=== PATIENT | female | born 1935 | race Caucasian/White ===

== ENCOUNTER 2017-11-08 13:04 | Observation (INO) ==
[2017-11-08 15:59] LABS: BASOPHILS % (AUTO) 0.3 % (0.2-1.0); EOSINOPHILS # (AUTO) 0.1 x10^3/uL (0.0-0.2); HEMATOCRIT 29.9 % (36.0-47.0); HEMOGLOBIN 10.4 g/dL (12.0-16.0); LYMPHOCYTES % (AUTO) 21.3 % (21.0-51.0); MEAN CORPUSCULAR HEMOGLOBIN 33.7 pg (27.0-34.0); MEAN CORPUSCULAR HGB CONC 34.9 g/dL (33.0-35.0); MEAN CORPUSCULAR VOLUME 96.7 fL (80.0-100.0); MEAN PLATELET VOLUME 7.5 fL (7.4-11.0); MONOCYTES # (AUTO) 0.6 x10^3/uL (0.3-0.8); MONOCYTES % (AUTO) 6.8 % (0.0-13.0); NEUTROPHILS # (AUTO) 6.5 x10^3/uL (2.2-4.8); NEUTROPHILS % (AUTO) 70.6 % (42.0-75.0); PLATELET COUNT 214 X10^3/uL (150.0-450.0); RED BLOOD COUNT 3.09 X10^6/uL (3.5-5.4); RED CELL DISTRIBUTION WIDTH 12.9 % (11.6-16.5); WHITE BLOOD COUNT 9.2 X10^3/uL (3.6-10.0)
[2017-11-08 16:14] LABS: B-TYPE NATRIURETIC PEPTIDE 131 pg/mL (0-79)
[2017-11-08 16:20] LABS: ALANINE AMINOTRANSFERASE 23 Units/L (12-78); ALBUMIN 3.2 g/dL (3.4-5.0); ALKALINE PHOSPHATASE 58 Units/L (46-116); ASPARTATE AMINO TRANSFERASE 16 Units/L (15-37); BLOOD UREA NITROGEN 34 mg/dL (7-18); CALCIUM 8.1 mg/dL (8.5-10.1); CARBON DIOXIDE 31.8 mmol/L (21-32); CHLORIDE 106 mmol/L (98-107); CKMB % 4.6 % (<4); COR CA(FOR HYPOALB) 8.7 mg/dL (8.5-10.1); COR NA(FOR HYPERGLY) 144 mmol/L (136-145); CREATINE KINASE 28 Units/L (26-192); CREATINE KINASE MB 1.3 ng/mL (0-4.0); CREATININE 1.46 mg/dL (0.55-1.02); SODIUM 143 mmol/L (136-145); TOTAL PROTEIN 6.3 g/dL (6.4-8.2); TROPONIN I < 0.02 ng/mL (0-1.5); eGFR NON BLACK RACES 36 (>60)
--- NOTE | 2017-11-08 17:21 | RAD ---
HISTORY: Shortness of breath Study: Single view of the chest. Comparison: None. Findings: Cardiomegaly and mild vascular edema. No focal consolidations, pleural effusions or pneumothorax. Oss eous structures demonstrate no acute abnormality. IMPRESSION: 1. Cardiomegaly and mild vascular edema. Reported By:
[2017-11-08 18:22] VITALS: BMI 31.9
[2017-11-08 20:26] LABS: CKMB % 4.4 % (<4); CREATINE KINASE MB 1.2 ng/mL (0-4.0); TROPONIN I 0.02 ng/mL (0-1.5)
[2017-11-08] MEDS: LASIX IVP SCH (21:55)
[2017-11-08] MEDS: NEURONTIN CAP 300 MG PO SCH (21:55)
[2017-11-08] MEDS: RESTORIL CAP 15 MG PO PRN (21:56)
[2017-11-09 00:21] LABS: CKMB % 3.7 % (<4); CREATINE KINASE MB 1.1 ng/mL (0-4.0); TROPONIN I 0.02 ng/mL (0-1.5)
[2017-11-09 06:10] LABS: BASOPHILS % (AUTO) 0.4 % (0.2-1.0); EOSINOPHILS # (AUTO) 0.1 x10^3/uL (0.0-0.2); EOSINOPHILS % (AUTO) 1.2 % (0.9-2.9); HEMATOCRIT 30.7 % (36.0-47.0); HEMOGLOBIN 10.7 g/dL (12.0-16.0); LYMPHOCYTES # (AUTO) 1.5 X10^3/uL (1.3-2.9); LYMPHOCYTES % (AUTO) 17.1 % (21.0-51.0); MEAN CORPUSCULAR HEMOGLOBIN 33.9 pg (27.0-34.0); MEAN CORPUSCULAR HGB CONC 34.8 g/dL (33.0-35.0); MEAN CORPUSCULAR VOLUME 97.6 fL (80.0-100.0); MEAN PLATELET VOLUME 7.7 fL (7.4-11.0); MONOCYTES # (AUTO) 0.5 x10^3/uL (0.3-0.8); MONOCYTES % (AUTO) 5.8 % (0.0-13.0); NEUTROPHILS # (AUTO) 6.8 x10^3/uL (2.2-4.8); NEUTROPHILS % (AUTO) 75.5 % (42.0-75.0); PLATELET COUNT 223 X10^3/uL (150.0-450.0); RED BLOOD COUNT 3.14 X10^6/uL (3.5-5.4); RED CELL DISTRIBUTION WIDTH 13.2 % (11.6-16.5)
[2017-11-09 06:30] LABS: CALCIUM 8.1 mg/dL (8.5-10.1); CARBON DIOXIDE 29.8 mmol/L (21-32); COR CA(FOR HYPOALB) 8.9 mg/dL (8.5-10.1); CREATININE 1.46 mg/dL (0.55-1.02); TOTAL PROTEIN 6.2 g/dL (6.4-8.2)
--- NOTE | 2017-11-09 07:37 | RAD ---
HISTORY: Shortness of breath Study: Chest AP portable Comparison: 11/08/2017 Findings: The heart is enlarged. No congestive heart failure is noted. No acute alveolar infiltrates or pleural effusions are identified. The bony thorax is unremarkable. IMPRESSION: Moderate cardiomegaly without congestive heart failure No infiltrates Reported By:
[2017-11-09] MEDS: LASIX IVP SCH ×2 (09:00→22:41)
[2017-11-09] MEDS: NEURONTIN CAP 300 MG PO SCH ×2 (09:00→21:42)
[2017-11-09] MEDS ORDERED: MACROBID CAP 100 MG EXT REL PO SCH (10:00)
[2017-11-09] MEDS ORDERED: LASIX IVP SCH (10:00)
[2017-11-09 12:17] LABS: BILIRUBIN,URINE NEGATIVE (NEGATIVE); BLOOD/HEMOGLOBIN,URINE NEGATIVE (NEGATIVE); GLUCOSE, URINE NEGATIVE (NEGATIVE); KETONES,URINE NEGATIVE (NEGATIVE); LEUKOCYTE ESTERASE ,URINE 1+ (NEGATIVE); NITRITES,URINE NEGATIVE (NEGATIVE); PROTEIN,URINE NEGATIVE (NEGATIVE); UROBILINOGEN,URINE NORMAL (NORMAL)
[2017-11-09 12:25] LABS: APPEARANCE,URINE CLEAR (CLEAR); COLOR,URINE PALE YELLOW (YELLOW)
[2017-11-09 12:26] LABS: BACTERIA,URINE NEGATIVE /HPF (NEGATIVE); RBC,URINE 0-2 /HPF (NONE SEEN); SQUAMOUS EPITHELIAL CELL,UR RARE /HPF (NEGATIVE)
--- NOTE | 2017-11-09 15:45 | VAS ---
HISTORY: Leg pain and swelling Study: color-flow duplex Doppler studies of the lower extremities. Comparison: None TECHNIQUE: Multiple sheets scale and color flow Doppler images of the deep venous system were obtained of the right and left lower extremity. FINDINGS: The deep venous system of the right and left lower extremities were evaluated from the level of the c ommon femoral vein through the popliteal vein. Normal color flow and augmentation can be observed. In addition, normal compression is seen throughout the deep venous system. IMPRESSION: No DVT identified in the lower extremities. Reported By:
--- NOTE | 2017-11-09 20:36 | DR.UPDATE ---
H&P Update History and Physical Update: WAS SEEN IN THE OFFICE TODAY. A H&P WAS COMPLETED PRIOR TO ADMISSION. PATIENT HAS BEEN SEEN AND EXAMINED WITH NO CHANGES NOTED TO H&P. Changes noted: NO Yes with the following:
--- NOTE | 2017-11-09 20:44 | PCM.PROG ---
Progress Note - Progress Note for Day of Date of Exam: 11/09/17 - Subjective Subjective: WAS ADMITTED FOR NEW ONSET CHF AND A RECENT UTI. TODAY, SHE IS ALERT AND ORIENTED, LYING IN BED ON MORNING ROUNDS. SHE CONTINUES WITH COMPLAINTS OF SHORTNESS OF BREATH AND LOWER EXTREMITY EDEMA. ON EXAMINATION, HEART IS REGULAR IN RATE AND RHYTHM. BILATERAL LUNGS ARE NOTED WITH DIMINISHED LUNG SOUNDS THROUGHOUT. ABDOMEN IS ROUND, SOFT, AND NON-TENDER WITH NORMAL BOWEL SOUNDS NOTED IN ALL QUADRANTS. BILATERAL LOWER EXTREMITIES ARE NOTED WITH 3+ PITTING EDEMA. SHE COMPLAINTS OF PAIN TO BOTH EXTREMITIES. HER VITALS TODAY ARE 98.0-88-20-100%-172/79. LABS WERE OBTAINED. ABNORMAL LAB VALUES INCLUDE THE FOLLOWING: RBC 3.14, HGB 10.7, HCT 30.7, BUN 34, CREATININE 1.46, GLUCOSE 151, CALCIUM 8.1, TOTAL PROTEIN 6.2, ALBUMIN 3.0. CARDIAC ENZYMES AND EKGS WITHIN NORMAL LIMITS. WE OBTAINED A BILATERAL LOWER EXTREMITY VENOUS DOPPLER TODAY. IT REVEALED: The deep venous system of the right and left lower extremities were evaluated from the level of the common femoral vein through the popliteal vein. Normal color flow and augmentation can be observed. In addition, normal compression is seen throughout the deep venous system. WE WILL OBTAIN AN ECHOCARDIOGRAM TODAY. WE WILL CONTINUE TO ADMINISTER LASIX AND RESTRICT IV FLUIDS. OTHERWISE, WE PLAN TO FOLLOW UP WITH AM LABS AND CONTINUE TO MONITOR PATIENT. - Past Medical Family Social History Past Med/Fam/Surg Hx: No changes since H&P Allergies: Allergies No Known Drug Allergies Allergy (Verified 11/08/17 15:48) - Vital Signs and I&O's Vital Signs: Temperature 98.5 F Pulse Rate [Right Radial] 88 Respiratory Rate 20 Blood Pressure [Right Arm] 167/72 O2 Sat by Pulse Oximetry 98 Intake and Output: Intake & Output 11/07/17 11/08/17 11/09/17 11/10/17 11:59 11:59 11:59 11:59 Intake Total 445 / 445 480 / 480 Balance 445 / 445 480 / 480 - Physical Exam Oriented: Normal Eyes: Normal Ear: Normal Nose: Normal Throat: Normal Respiratory: Generalized, Diminished Cardiovascular: Edema (BILATERAL LOWER EXTREMITY 3+ PITTING EDEMAE ) : Normal Auscultation: Bowel Sounds: Normal Palpation: Normal Tenderness: Normal Skin: Normal Musculoskeletal: Normal Psychiatric: Normal Mood Description: Calm Affect: Normal Speech Pattern: Clear, Appropriate - Laboratory and Diagnostics Result Diagrams: 11/09/17 05:30 11/09/17 05:30 Labs: Laboratory WBC 9.0 X10^3/uL (3.6-10.0) 11/09/17 05:30 RBC 3.14 X10^6/uL (3.5-5.4) L 11/09/17 05:30 Hgb 10.7 g/dL (12.0-16.0) L 11/09/17 05:30 Hct 30.7 % (36.0-47.0) L 11/09/17 05:30 MCV 97.6 fL (80.0-100.0) 11/09/17 05:30 MCH 33.9 pg (27.0-34.0) 11/09/17 05:30 MCHC 34.8 g/dL (33.0-35.0) 11/09/17 05:30 RDW 13.2 % (11.6-16.5) 11/09/17 05:30 Plt Count 223 X10^3/uL (150.0-450.0) 11/09/17 05:30 MPV 7.7 fL (7.4-11.0) 11/09/17 05:30 Neut % (Auto) 75.5 % (42.0-75.0) H 11/09/17 05:30 Lymph % (Auto) 17.1 % (21.0-51.0) L 11/09/17 05:30 [place] % (Auto) 5.8 % (0.0-13.0) 11/09/17 05:30 Eos % (Auto) 1.2 % (0.9-2.9) 11/09/17 05:30 Baso % (Auto) 0.4 % (0.2-1.0) 11/09/17 05:30 Neut # (Auto) 6.8 x10^3/uL (2.2-4.8) H 11/09/17 05:30 Lymph # (Auto) 1.5 X10^3/uL (1.3-2.9) 11/09/17 05:30 [place] # (Auto) 0.5 x10^3/uL (0.3-0.8) 11/09/17 05:30 Eos # (Auto) 0.1 x10^3/uL (0.0-0.2) 11/09/17 05:30 Baso # (Auto) 0.0 X10^3/uL (0.0-0.1) 11/09/17 05:30 Absolute Nucleated RBC 0.0 /100WBC 11/09/17 05:30 Sodium 143 mmol/L (136-145) 11/09/17 05:30 Corrected Sodium 144 mmol/L (136-145) 11/09/17 05:30 Potassium 4.3 mmol/L (3.5-5.1) 11/09/17 05:30 Chloride 107 mmol/L (98-107) 11/09/17 05:30 Carbon Dioxide 29.8 mmol/L (21-32) 11/09/17 05:30 BUN 34 mg/dL (7-18) H 11/09/17 05:30 Creatinine 1.46 mg/dL (0.55-1.02) H 11/09/17 05:30 Est GFR (MDRD) Af Amer 44 (>60) L 11/09/17 05:30 Est GFR (MDRD) Non-Af 36 (>60) L 11/09/17 05:30 Glucose 151 mg/dL (65-99) H 11/09/17 05:30 Calcium 8.1 mg/dL (8.5-10.1) L 11/09/17 05:30 Corrected Calcium 8.9 mg/dL (8.5-10.1) 11/09/17 05:30 Total Bilirubin 0.20 mg/dL (0.2-1.0) 11/09/17 05:30 AST 15 Units/L (15-37) 11/09/17 05:30 ALT 21 Units/L (12-78) 11/09/17 05:30 Alkaline Phosphatase 58 Units/L (46-116) 11/09/17 05:30 Creatine Kinase 30 Units/L (26-192) 11/08/17 23:37 CK-MB (CK-2) 1.1 ng/mL (0-4.0) 11/08/17 23:37 CK/CKMB % Calc 3.7 % (<4) 11/08/17 23:37 Troponin I 0.02 ng/mL (0-1.5) 11/08/17 23:37 B-Natriuretic Peptide 131 pg/mL (0-79) H 11/08/17 15:50 Total Protein 6.2 g/dL (6.4-8.2) L 11/09/17 05:30 Albumin 3.0 g/dL (3.4-5.0) L 11/09/17 05:30 Globulin 3.2 g/dL (2.5-4.5) 11/09/17 05:30 Albumin/Globulin Ratio 0.9 Ratio (1.1-2.1) L 11/09/17 05:30 Specimen Type Clean catch urine 11/09/17 11:42 Urine Color Pale yellow (YELLOW) 11/09/17 11:42 Urine Appearance Clear (CLEAR) 11/09/17 11:42 Urine pH 5.0 (5.0 - 8.0) 11/09/17 11:42 Ur Specific [place] 1.010 (1.000-1.030) 11/09/17 11:42 Urine Protein Negative (NEGATIVE) 11/09/17 11:42 Urine Glucose (UA) Negative (NEGATIVE) 11/09/17 11:42 Urine Ketones Negative (NEGATIVE) 11/09/17 11:42 Urine Occult Blood Negative (NEGATIVE) 11/09/17 11:42 Urine Nitrite Negative (NEGATIVE) 11/09/17 11:42 Urine Bilirubin Negative (NEGATIVE) 11/09/17 11:42 Urine Urobilinogen Normal (NORMAL) 11/09/17 11:42 Ur Leukocyte Esterase 1+ (NEGATIVE) 11/09/17 11:42 Urine RBC 0-2 /HPF (NONE SEEN) 11/09/17 11:42 Urine WBC 0-2 /HPF (NONE SEEN) 11/09/17 11:42 Ur Squamous Epith Cells Rare /HPF (NEGATIVE) 11/09/17 11:42 Urine Bacteria Negative /HPF (NEGATIVE) 11/09/17 11:42 Ur Culture Indicated? No/not indicated 11/09/17 11:42 - Plan (1) New onset of congestive heart failure Status: Acute Plan: LASIX 20MG IV Q12H, SUPPLEMENTAL OXYGEN, OBTAIN ECHO, MONITOR CHEST XRAY
[2017-11-09] MEDS: RESTORIL CAP 15 MG PO PRN (21:00)
[2017-11-10 06:27] LABS: BASOPHILS % (AUTO) 0.6 % (0.2-1.0); EOSINOPHILS # (AUTO) 0.2 x10^3/uL (0.0-0.2); EOSINOPHILS % (AUTO) 2.4 % (0.9-2.9); HEMATOCRIT 29.9 % (36.0-47.0); HEMOGLOBIN 10.4 g/dL (12.0-16.0); LYMPHOCYTES # (AUTO) 1.9 X10^3/uL (1.3-2.9); LYMPHOCYTES % (AUTO) 22.9 % (21.0-51.0); MEAN CORPUSCULAR HGB CONC 34.9 g/dL (33.0-35.0); MEAN CORPUSCULAR VOLUME 97.4 fL (80.0-100.0); MEAN PLATELET VOLUME 7.5 fL (7.4-11.0); MONOCYTES # (AUTO) 0.5 x10^3/uL (0.3-0.8); MONOCYTES % (AUTO) 5.5 % (0.0-13.0); NEUTROPHILS # (AUTO) 5.6 x10^3/uL (2.2-4.8); NEUTROPHILS % (AUTO) 68.6 % (42.0-75.0); PLATELET COUNT 214 X10^3/uL (150.0-450.0); RED BLOOD COUNT 3.07 X10^6/uL (3.5-5.4); RED CELL DISTRIBUTION WIDTH 13.1 % (11.6-16.5); WHITE BLOOD COUNT 8.2 X10^3/uL (3.6-10.0)
[2017-11-10 06:32] LABS: ALBUMIN 2.9 g/dL (3.4-5.0); CALCIUM 8.2 mg/dL (8.5-10.1); CARBON DIOXIDE 33.3 mmol/L (21-32); COR CA(FOR HYPOALB) 9.1 mg/dL (8.5-10.1); CREATININE 1.24 mg/dL (0.55-1.02)
--- NOTE | 2017-11-10 06:36 | RAD ---
HISTORY: Shortness of breath, swelling Study: Single-view chest Comparison: 11/09/2017. Findings: Trachea is midline. There is cardiomegaly with aortic uncoiling. The lungs and pleural spaces are mae ar. Osseous structures are intact. IMPRESSION: Hypertensive configuration without acute cardiopulmonary disease. Reported By:
[2017-11-10] MEDS: NEURONTIN CAP 300 MG PO SCH (08:59)
[2017-11-10] MEDS: LASIX IVP SCH (09:00)
[2017-11-10 12:16] VITALS: BP 161/70
--- NOTE | 2017-12-13 22:38 | DR.CARTERD ---
- Discharge Summary for: Discharge Summary for Date of:: 11/10/17 - Admission Date Date of Admission: 11/08/17 - Admission Diagnoses Admission Diagnosis: (1) New onset of congestive heart failure (2) Shortness of breath (3) Bilateral lower extremity edema - Discharge Date Discharge Date: 11/10/17 - Discharge Diagnoses Discharge Diagnosis: (1) New onset of congestive heart failure (2) Shortness of breath (3) Bilateral lower extremity edema - Hospital Course Hospital Course: DAY ONE, MS. YOUNG WAS A DIRECT ADMIT FROM OUR OFFICE FOR NEW ONSET CHF. PATIENT WAS NOTED WITH BILATERAL LOWER EXTREMITY PITTING EDEMA AND SHORTNESS OF BREATH. WE ADMITTED FOR FURTHER TREATMENT AND EVALUATION. DAY TWO, SHE WAS ALERT AND ORIENTED, LYING IN BED ON MORNING ROUNDS. SHE CONTINUED WITH COMPLAINTS OF SHORTNESS OF BREATH AND LOWER EXTREMITY EDEMA. ON EXAMINATION, HEART WAS REGULAR IN RATE AND RHYTHM. BILATERAL LUNGS WERE NOTED WITH DIMINISHED LUNG SOUNDS THROUGHOUT. ABDOMEN WAS ROUND, SOFT, AND NON-TENDER WITH NORMAL BOWEL SOUNDS NOTED IN ALL QUADRANTS. BILATERAL LOWER EXTREMITIES WERE NOTED WITH 3+ PITTING EDEMA. SHE COMPLAINED OF PAIN TO BOTH EXTREMITIES. HER VITALS WERE 98.0-88-20-100%-172/79. LABS WERE OBTAINED. ABNORMAL LAB VALUES INCLUDED THE FOLLOWING: RBC 3.14, HGB 10.7, HCT 30.7, BUN 34, CREATININE 1.46, GLUCOSE 151, CALCIUM 8.1, TOTAL PROTEIN 6.2, ALBUMIN 3.0. CARDIAC ENZYMES AND EKGS WITHIN NORMAL LIMITS. WE OBTAINED A BILATERAL LOWER EXTREMITY VENOUS DOPPLER AND IT REVEALED: The deep venous system of the right and left lower extremities were evaluated from the level of the common femoral vein through the popliteal vein. Normal color flow and augmentation can be observed. In addition, normal compression is seen throughout the deep venous system. WE CONTINUED TO ADMINISTER LASIX AND RESTRICT IV AND PO FLUIDS. ON DAY THREE, WE OBTAINED AN ECHO, WHICH REPORTED AN EJECTION FRACTION OF 55%. PATIENT HAD URINE OUTPUT OF 2000MLS ON DAY TWO. ON DAY THREE, LOWER EXTREMITY EDEMA WAS RESOLVED. PATIENT DENIED PAIN TO LOWER EXTREMITIES. NO DISTRESS WAS NOTED. SHE DENIED SHORTNESS OF BREATH. VITAL SIGNS STABLE. LABS WNL. WE PLANNED FOR DISCHARGE. INSTRUCTIONS FOR MEDICATIONS AND FOLLOW UP WERE DISCUSSED WITH PATIENT AND FAMILY, BOTH VOICED UNDERSTANDING. PATIENT DISCHARGED HOME IN STABLE CONDITION WITH FAMILY. - Discharge Medications Discharge Medications: Home Medication List gabapentin 300 mg PO BID 11/08/17 [History] nitrofurantoin monohyd/m-cryst [Macrobid] 100 mg PO BID 11/08/17 [History] furosemide [Lasix] 20 mg PO BID #60 tab 11/10/17 [Rx] Prescriptions: furosemide [Lasix] Ashish Son ranitidine HCl [Zantac Maximum Strength] 150 mg PO BID PRN 12/12/17 - Discharge Disposition Discharge Disposition: PATIENT IS TO FOLLOW UP WITH ANDRE LIANG IN ONE WEEK.
== END 2017-11-10 16:30 | disposition home health service (06) ==
LOC: MED/SURG
PROVIDERS: ADMIT Internal Medicine; ATTEND Internal Medicine
DX: Z87.440 Personal history of urinary (tract) infections; I50.9 Heart failure, unspecified; R74.8 Abnormal levels of other serum enzymes; R60.0 Localized edema; R42 Dizziness and giddiness; R94.31 Abnormal electrocardiogram [ECG] [EKG]; R94.4 Abnormal results of kidney function studies; R26.89 Other abnormalities of gait and mobility; I51.7 Cardiomegaly
CPT/HCPCS: 36415; 71010; 71045; 80053; 81001; 82550; 82553; 83880; 84484; 85025; 93005; 93306; 93970; 94760; 97163; 97166; 97535; A4216; A4222; G0378; J1940

== ENCOUNTER 2017-12-12 21:19 | Inpatient (IN) ==
--- NOTE | 2017-12-12 22:05 | DR.GENAD ---
HPI Time Seen Time Seen by Provider: 12/12/17 22:01 PCP Primary Care Physician: allison HPI Comment HPI Comment: PATIENT FOR UTI 4 DAYS AGO. HERE VIA EMS. DENIES TRAUMA OR FEVER. Complaint/Symptoms Chief Complaint Doctors Comments: AMS. Chief Complaint:: pt to ed via [facility] with c/o AMS per family pt oriented to person,place pt dx with uti on 12/08/17 Nurses notes reviewed Nurses Notes Review: Yes Source History Provided: Patient Mode of Arrival Mode of Arrival: EMS Timing Onset of Chief Complaint: 12/08/17 Duration Duration: Since Onset Duration: Hours Severity Severity: None PMH PMH Past Medical History: Yes Past Medical History: Arthritis and GERD Past Surgical History: Yes Surgical History: Hysterectomy and Ortho Surgery Family History History of Family Medical Conditions: Yes Family Medical History: Cancer Social History Does patient currently use any type of tobacco product: No Have you used tobacco products in the last 12 months: No Type of Tobacco Use: None Does any household member use tobacco: No Alcohol Use: None Do you use any recreational Drugs:: No Lives With: Family Lives Where: Home infectious screening In the last 2 months have you had wt loss of >10#?: NO Have you had fever, night sweats or hemotysis?: No Have you traveled outside the country in the last 6 months?: No Isolation: Standard ROS Review of Systems Constitutional: Fatigue Eyes: No Symptoms Reported ENTM: No Symptoms Reported Respiratoy: Short of Breath (ON EXERSION) Cardiovascular: No Symptoms Reported Gastrointestinal/Abdominal: No Symptoms Reported Genitourinary: No Symptoms Reported Neurological: Other (AMS.) Musculoskeletal: No Symptoms Reported Integumentary: No Symptoms Reported Hematologic/Lymphatic: No Symptoms Reported Endocrine: No Symptoms Reported Psychiatric: No Symptoms Reported All Other Systems: Reviewed and Negative Unable to Obtain Due To: Altered mental status PE Vital Signs Vitals: Temperature 98.4 F Pulse Rate [Left] 86 Pulse Rate 75 Respiratory Rate 20 Blood Pressure [Left Arm] 153/64 Blood Pressure [Right Arm] 101/53 Blood Pressure 135/63 O2 Sat by Pulse Oximetry 98 General Limitations: Altered Mental Status General Appearance: Alert and In No Apparent Distress Head Head Exam: Normal Inspection Eyes Eye exam: Normal Appearance ENT ENT Exam: Normal Exam TM/Canal Exam: Bilateral: Normal Nose Exam: Normal Nose Exam Mouth Exam: Normal Inspection Throat Exam: Normal Inspection Neck Neck Exam: Normal Inspection Chest Chest Inspection: Symmetric Chest Wall Rise Respiratory Respiratory Exam: Normal Lung Sounds Bilat Respiratory Exam: Bilateral: Clear to Auscultation Cardiovascular Cardiovascular Exam: Regular Rate Abdominal Exam Abdominal Exam: Normal Bowel Sounds and Soft; negative Tenderness Extremities Extremities Exam: Normal Capillary Refill; negative Calf Tenderness Back Back Exam: Normal Inspection Neurologic Neurological Exam: Alert and Oriented X3 (ORIENTED TO PERSON AND PLACE.); negative Motor Sensory Deficit Psychiatric Psychiatric Exam: Normal Affect Skin Skin Exam: Intact MDM Differential Diagnosis Differential Diagnosis: AMS, CVA, UTI, TIA COURSE Treatment Treatment: SEE ORDERS. Consultation Consultation Comments: DR. MANNING WILL ADMIT PATIENT. Education/Counseling Education/Counseling: Patient Educated On: Diagnosis ROR Labs Reviewed Laboratory Results Reviewed?: Yes Result Diagrams: 12/21/17 04:20 12/21/17 04:20 Laboratory: 12/19/17 10:15 Groin Gram Stain - Final 12/19/17 10:15 Groin Wound Culture - Final Escherichia Coli 12/12/17 00:15 Blood Blood Culture - Final 12/12/17 00:22 Blood Blood Culture - Final 12/13/17 11:20 Urine,Catheterized Urine Culture - Final WBC 13.4 X10^3/uL (3.6-10.0) H 12/21/17 04:20 RBC 2.43 X10^6/uL (3.5-5.4) L 12/21/17 04:20 Hgb 8.2 g/dL (12.0-16.0) L 12/21/17 04:20 Hct 23.5 % (36.0-47.0) L 12/21/17 04:20 MCV 96.6 fL (80.0-100.0) 12/21/17 04:20 MCH 33.7 pg (27.0-34.0) 12/21/17 04:20 MCHC 34.9 g/dL (33.0-35.0) 12/21/17 04:20 RDW 12.5 % (11.6-16.5) 12/21/17 04:20 Plt Count 303 X10^3/uL (150.0-450.0) 12/21/17 04:20 Plt Count Comment Adequate (ADEQUATE) 12/18/17 04:10 MPV 7.8 fL (7.4-11.0) 12/21/17 04:20 Neut % (Auto) 76.7 % (42.0-75.0) H 12/21/17 04:20 Lymph % (Auto) 16.6 % (21.0-51.0) L 12/21/17 04:20 [place] % (Auto) 3.8 % (0.0-13.0) 12/21/17 04:20 Eos % (Auto) 2.3 % (0.9-2.9) 12/21/17 04:20 Baso % (Auto) 0.6 % (0.2-1.0) 12/21/17 04:20 Neut # (Auto) 10.3 x10^3/uL (2.2-4.8) H 12/21/17 04:20 Lymph # (Auto) 2.2 X10^3/uL (1.3-2.9) 12/21/17 04:20 [place] # (Auto) 0.5 x10^3/uL (0.3-0.8) 12/21/17 04:20 Eos # (Auto) 0.3 x10^3/uL (0.0-0.2) H 12/21/17 04:20 Baso # (Auto) 0.1 X10^3/uL (0.0-0.1) 12/21/17 04:20 Absolute Nucleated RBC 0.0 /100WBC 12/21/17 04:20 Total Counted 100 12/18/17 04:10 Neutrophils % (Manual) 78 % (39-76) H 12/18/17 04:10 Band Neutrophils % 4 % (0-10) 12/18/17 04:10 Lymphocytes % (Manual) 12 % (13-43) L 12/18/17 04:10 Monocytes % (Manual) 4 % (4-9) 12/18/17 04:10 Eosinophils % (Manual) 2 % (0-6) 12/18/17 04:10 Plt Morphology Comment Normal (NORMAL) 12/18/17 04:10 RBC Morphology Normal (NORMAL) 12/18/17 04:10 Sodium 143 mmol/L (136-145) 12/21/17 04:20 Corrected Sodium 143 mmol/L (136-145) 12/21/17 04:20 Potassium 3.8 mmol/L (3.5-5.1) 12/21/17 04:20 Chloride 107 mmol/L (98-107) 12/21/17 04:20 Carbon Dioxide 31.6 mmol/L (21-32) 12/21/17 04:20 BUN 21 mg/dL (7-18) H 12/21/17 04:20 Creatinine 1.04 mg/dL (0.55-1.02) H 12/21/17 04:20 Est GFR (MDRD) Af Amer > 60 (>60) 12/21/17 04:20 Est GFR (MDRD) Non-Af 54 (>60) L 12/21/17 04:20 Glucose 111 mg/dL (65-99) H 12/21/17 04:20 Lactic Acid 1.5 mmol/L (0.4-2.0) 12/12/17 00:15 Calcium 7.8 mg/dL (8.5-10.1) L 12/21/17 04:20 Corrected Calcium 9.1 mg/dL (8.5-10.1) 12/21/17 04:20 Magnesium 1.6 mg/dL (1.7-2.9) L 12/13/17 05:09 Total Bilirubin 0.30 mg/dL (0.2-1.0) 12/21/17 04:20 AST 12 Units/L (15-37) L 12/21/17 04:20 ALT 12 Units/L (12-78) 12/21/17 04:20 Alkaline Phosphatase 49 Units/L (46-116) 12/21/17 04:20 Creatine Kinase 56 Units/L (26-192) 12/14/17 05:53 CK-MB (CK-2) < 1.0 ng/mL (0-4.0) 12/14/17 05:53 CK/CKMB % Calc 1.8 % (<4) 12/14/17 05:53 Troponin I 0.04 ng/mL (0-1.5) 12/14/17 05:53 Total Protein 5.4 g/dL (6.4-8.2) L 12/21/17 04:20 Albumin 2.4 g/dL (3.4-5.0) L 12/21/17 04:20 Globulin 3.0 g/dL (2.5-4.5) 12/21/17 04:20 Albumin/Globulin Ratio 0.8 Ratio (1.1-2.1) L 12/21/17 04:20 Specimen Type Catherized urine 12/13/17 11:20 Urine Color Brown (YELLOW) 12/13/17 11:20 Urine Appearance Hazy (CLEAR) 12/13/17 11:20 Urine pH 5.0 (5.0 - 8.0) 12/13/17 11:20 Ur Specific [place] 1.025 (1.000-1.030) 12/13/17 11:20 Urine Protein 2+ (NEGATIVE) 12/13/17 11:20 Urine Glucose (UA) Negative (NEGATIVE) 12/13/17 11:20 Urine Ketones Negative (NEGATIVE) 12/13/17 11:20 Urine Occult Blood 3+ (NEGATIVE) 12/13/17 11:20 Urine Nitrite Positive (NEGATIVE) 12/13/17 11:20 Urine Bilirubin 2+ (NEGATIVE) 12/13/17 11:20 Urine Urobilinogen 2+ (NORMAL) 12/13/17 11:20 Ur Leukocyte Esterase 2+ (NEGATIVE) 12/13/17 11:20 Urine RBC 5-10 /HPF (NONE SEEN) 12/13/17 11:20 Urine WBC 3-5 /HPF (NONE SEEN) 12/13/17 11:20 Ur Squamous Epith Cells Negative /HPF (NEGATIVE) 12/13/17 11:20 Amorphous Sediment 2+ /HPF (NEGATIVE) 12/13/17 11:20 Urine Bacteria 3+ /HPF (NEGATIVE) 12/13/17 11:20 Ur Culture Indicated? Yes/culture set up 12/13/17 11:20 Stool Description 20g,unformed,brown 12/18/17 14:00 Stl Occult Blood (IFOB) Negative (NEGATIVE) 12/18/17 14:00 Instructions Instructions: Percutaneous Abscess Drain Shortness of Breath, Adult Urinary Tract Infection, Adult Heart Failure, Igkh-dl-Atty Percutaneous Abscess Drain, Care After
[2017-12-12 22:40] LABS: BASOPHILS # (AUTO) 0.2 X10^3/uL (0.0-0.1); BASOPHILS % (AUTO) 0.7 % (0.2-1.0); EOSINOPHILS # (AUTO) 0.1 x10^3/uL (0.0-0.2); EOSINOPHILS % (AUTO) 0.4 % (0.9-2.9); HEMOGLOBIN 10.7 g/dL (12.0-16.0); LYMPHOCYTES # (AUTO) 2.3 X10^3/uL (1.3-2.9); LYMPHOCYTES % (AUTO) 9.5 % (21.0-51.0); MEAN CORPUSCULAR HEMOGLOBIN 32.9 pg (27.0-34.0); MEAN CORPUSCULAR HGB CONC 33.3 g/dL (33.0-35.0); MEAN CORPUSCULAR VOLUME 98.7 fL (80.0-100.0); MEAN PLATELET VOLUME 8.1 fL (7.4-11.0); MONOCYTES # (AUTO) 1.2 x10^3/uL (0.3-0.8); MONOCYTES % (AUTO) 5.2 % (0.0-13.0); NEUTROPHILS % (AUTO) 84.2 % (42.0-75.0); PLATELET COUNT 275 X10^3/uL (150.0-450.0); RED BLOOD COUNT 3.24 X10^6/uL (3.5-5.4); RED CELL DISTRIBUTION WIDTH 12.7 % (11.6-16.5); WHITE BLOOD COUNT 23.8 X10^3/uL (3.6-10.0)
[2017-12-12 22:53] LABS: BAND NEUTROPHILS % 7 % (0-10); PLATELET MORPHOLOGY COMMENT NORMAL (NORMAL)
[2017-12-12 22:59] LABS: BLOOD UREA NITROGEN 28 mg/dL (7-18); CALCIUM 8.5 mg/dL (8.5-10.1); CARBON DIOXIDE 27.2 mmol/L (21-32); CHLORIDE 105 mmol/L (98-107); COR NA(FOR HYPERGLY) 144 mmol/L (136-145); CREATININE 1.38 mg/dL (0.55-1.02); SODIUM 142 mmol/L (136-145); TROPONIN I < 0.02 ng/mL (0-1.5); eGFR NON BLACK RACES 39 (>60)
[2017-12-12 23:03] LABS: ALANINE AMINOTRANSFERASE 15 Units/L (12-78); ALBUMIN 3.1 g/dL (3.4-5.0); ALKALINE PHOSPHATASE 68 Units/L (46-116); ASPARTATE AMINO TRANSFERASE 12 Units/L (15-37); CKMB % 4.2 % (<4); COR CA(FOR HYPOALB) 9.2 mg/dL (8.5-10.1); CREATINE KINASE 24 Units/L (26-192); CREATINE KINASE MB < 1.0 ng/mL (0-4.0); TOTAL PROTEIN 6.7 g/dL (6.4-8.2)
[2017-12-12 23:20] LABS: BILIRUBIN,URINE 1+ (NEGATIVE); BLOOD/HEMOGLOBIN,URINE 1+ (NEGATIVE); GLUCOSE, URINE NEGATIVE (NEGATIVE); KETONES,URINE 1+ (NEGATIVE); LEUKOCYTE ESTERASE ,URINE 3+ (NEGATIVE); NITRITES,URINE NEGATIVE (NEGATIVE); PROTEIN,URINE 2+ (NEGATIVE); UROBILINOGEN,URINE 1+ (NORMAL)
[2017-12-12 23:40] LABS: APPEARANCE,URINE SLIGHTLY HAZY (CLEAR); BACTERIA,URINE TRACE /HPF (NEGATIVE); COLOR,URINE AMBER (YELLOW); RBC,URINE NONE SEEN /HPF (NONE SEEN); SQUAMOUS EPITHELIAL CELL,UR FEW /HPF (NEGATIVE)
[2017-12-13] MEDS ORDERED: DUONEB 0.5 MG/3 MG NEB ONE (00:19)
[2017-12-13] MEDS ORDERED: ROCEPHIN VIAL 1 GRAM ONE (00:22)
[2017-12-13] MEDS ORDERED: NS 100 ML IV + SPIKE MINIBAG* 100 ML IV ONE (00:23)
[2017-12-13] MEDS ORDERED: DUONEB 0.5 MG/3 MG ONE (00:24)
[2017-12-13] MEDS ORDERED: NS 250 ML IV 0 ML IV ONE (00:26)
[2017-12-13] MEDS ORDERED: ROCEPHIN VIAL 1 GRAM IVP SCH ×2 (00:30→21:00)
[2017-12-13] MEDS ORDERED: DUONEB 0.5 MG/3 MG NEB PRN (00:44)
[2017-12-13 01:18] VITALS: BMI 29.2
[2017-12-13] MEDS: DUONEB 0.5 MG/3 MG NEB SCH ×5 (01:23→21:35)
[2017-12-13] MEDS ORDERED: SALINE 3% 15 ML NEB TX NEB ONE (06:10)
[2017-12-13] MEDS ORDERED: SALINE 3% 15 ML NEB TX ONE (06:11)
[2017-12-13 06:20] LABS: BASOPHILS # (AUTO) 0.1 X10^3/uL (0.0-0.1); BASOPHILS % (AUTO) 0.4 % (0.2-1.0); EOSINOPHILS % (AUTO) 0.2 % (0.9-2.9); HEMATOCRIT 27.1 % (36.0-47.0); HEMOGLOBIN 9.2 g/dL (12.0-16.0); LYMPHOCYTES # (AUTO) 1.7 X10^3/uL (1.3-2.9); LYMPHOCYTES % (AUTO) 6.2 % (21.0-51.0); MEAN CORPUSCULAR HEMOGLOBIN 33.6 pg (27.0-34.0); MEAN CORPUSCULAR HGB CONC 34.1 g/dL (33.0-35.0); MEAN CORPUSCULAR VOLUME 98.8 fL (80.0-100.0); MEAN PLATELET VOLUME 8.4 fL (7.4-11.0); MONOCYTES # (AUTO) 1.3 x10^3/uL (0.3-0.8); NEUTROPHILS # (AUTO) 23.7 x10^3/uL (2.2-4.8); NEUTROPHILS % (AUTO) 88.2 % (42.0-75.0); PLATELET COUNT 263 X10^3/uL (150.0-450.0); RED BLOOD COUNT 2.74 X10^6/uL (3.5-5.4); RED CELL DISTRIBUTION WIDTH 12.5 % (11.6-16.5); WHITE BLOOD COUNT 26.8 X10^3/uL (3.6-10.0)
[2017-12-13 06:36] LABS: ALBUMIN 2.6 g/dL (3.4-5.0); CALCIUM 8.1 mg/dL (8.5-10.1); CARBON DIOXIDE 26.1 mmol/L (21-32); COR CA(FOR HYPOALB) 9.2 mg/dL (8.5-10.1); CREATININE 1.88 mg/dL (0.55-1.02); MAGNESIUM 1.6 mg/dL (1.7-2.9)
[2017-12-13 06:55] LABS: CREATINE KINASE 20 Units/L (26-192); CREATINE KINASE MB < 1.0 ng/mL (0-4.0); TROPONIN I < 0.02 ng/mL (0-1.5)
[2017-12-13 07:02] LABS: BAND NEUTROPHILS % 7 % (0-10); PLATELET MORPHOLOGY COMMENT NORMAL (NORMAL)
[2017-12-13] MEDS: ZANTAC PO SCH (08:12)
[2017-12-13] MEDS: NYSTATIN POWDER TOP SCH ×2 (08:12→21:59)
[2017-12-13] MEDS ORDERED: NS 1000 ML 1,000 ML ONE (08:40)
[2017-12-13] MEDS: NS 1000 ML 1,000 ML IV SCH ×2 (08:47→22:01)
[2017-12-13] MEDS: INVANZ INJ 1 GM VIAL 1 GM in NS 100 ML IV + SPIKE MINIBAG* 100 ML IV SCH (10:29)
[2017-12-13 11:26] LABS: CKMB % 2.9 % (<4); CREATINE KINASE MB 1.1 ng/mL (0-4.0); TROPONIN I 0.06 ng/mL (0-1.5)
[2017-12-13 11:43] LABS: BILIRUBIN,URINE 2+ (NEGATIVE); BLOOD/HEMOGLOBIN,URINE 3+ (NEGATIVE); GLUCOSE, URINE NEGATIVE (NEGATIVE); KETONES,URINE NEGATIVE (NEGATIVE); LEUKOCYTE ESTERASE ,URINE 2+ (NEGATIVE); NITRITES,URINE POSITIVE (NEGATIVE); PROTEIN,URINE 2+ (NEGATIVE); UROBILINOGEN,URINE 2+ (NORMAL)
[2017-12-13 11:57] LABS: APPEARANCE,URINE HAZY (CLEAR); COLOR,URINE BROWN (YELLOW)
[2017-12-13 11:59] LABS: AMORPHOUS SEDIMENT,UR 2+ /HPF (NEGATIVE); BACTERIA,URINE 3+ /HPF (NEGATIVE); SQUAMOUS EPITHELIAL CELL,UR NEGATIVE /HPF (NEGATIVE)
[2017-12-13] MEDS ORDERED: MOTRIN TAB 800 MG PO PRN (12:58)
[2017-12-13] MEDS ORDERED: MOTRIN TAB 800 MG PO ONE (12:59)
[2017-12-13] MEDS ORDERED: TYLENOL 325 MG TAB PO PRN (13:27)
[2017-12-13] MEDS ORDERED: STERILE WATER IRRIGATION IR ONE (13:51)
[2017-12-13 18:21] LABS: CKMB % 1.3 % (<4); CREATINE KINASE MB 1.1 ng/mL (0-4.0); TROPONIN I 0.06 ng/mL (0-1.5)
[2017-12-13] MEDS ORDERED: ROBITUSSIN DM ONE (22:24)
[2017-12-13] MEDS: ROBITUSSIN DM PO PRN (22:26)
[2017-12-14] MEDS: DUONEB 0.5 MG/3 MG NEB SCH ×6 (01:34→21:24)
[2017-12-14 06:34] LABS: BASOPHILS # (AUTO) 0.1 X10^3/uL (0.0-0.1); BASOPHILS % (AUTO) 0.3 % (0.2-1.0); EOSINOPHILS # (AUTO) 0.1 x10^3/uL (0.0-0.2); EOSINOPHILS % (AUTO) 0.7 % (0.9-2.9); HEMATOCRIT 23.5 % (36.0-47.0); HEMOGLOBIN 8.2 g/dL (12.0-16.0); LYMPHOCYTES # (AUTO) 0.9 X10^3/uL (1.3-2.9); MEAN CORPUSCULAR HEMOGLOBIN 34.2 pg (27.0-34.0); MEAN CORPUSCULAR VOLUME 97.7 fL (80.0-100.0); MEAN PLATELET VOLUME 8.2 fL (7.4-11.0); MONOCYTES # (AUTO) 0.6 x10^3/uL (0.3-0.8); MONOCYTES % (AUTO) 3.6 % (0.0-13.0); NEUTROPHILS # (AUTO) 15.8 x10^3/uL (2.2-4.8); NEUTROPHILS % (AUTO) 90.4 % (42.0-75.0); PLATELET COUNT 218 X10^3/uL (150.0-450.0); RED CELL DISTRIBUTION WIDTH 12.6 % (11.6-16.5)
[2017-12-14 06:49] LABS: WHITE BLOOD COUNT 17.5 X10^3/uL (3.6-10.0)
[2017-12-14 07:05] LABS: BAND NEUTROPHILS % 10 % (0-10); PLATELET MORPHOLOGY COMMENT NORMAL (NORMAL)
[2017-12-14 07:06] LABS: ALANINE AMINOTRANSFERASE 10 Units/L (12-78); ALBUMIN 2.2 g/dL (3.4-5.0); ALKALINE PHOSPHATASE 63 Units/L (46-116); ASPARTATE AMINO TRANSFERASE 14 Units/L (15-37); BLOOD UREA NITROGEN 42 mg/dL (7-18); CALCIUM 7.7 mg/dL (8.5-10.1); CARBON DIOXIDE 21.9 mmol/L (21-32); CHLORIDE 108 mmol/L (98-107); CKMB % 1.8 % (<4); COR CA(FOR HYPOALB) 9.1 mg/dL (8.5-10.1); COR NA(FOR HYPERGLY) 142 mmol/L (136-145); CREATINE KINASE 56 Units/L (26-192); CREATINE KINASE MB < 1.0 ng/mL (0-4.0); CREATININE 1.83 mg/dL (0.55-1.02); SODIUM 141 mmol/L (136-145); TOTAL PROTEIN 5.6 g/dL (6.4-8.2); TROPONIN I 0.04 ng/mL (0-1.5); eGFR NON BLACK RACES 28 (>60)
[2017-12-14] MEDS: NYSTATIN POWDER TOP SCH ×2 (09:07→21:41)
[2017-12-14] MEDS: ZANTAC PO SCH (09:07)
[2017-12-14] MEDS: INVANZ INJ 1 GM VIAL 1 GM in NS 100 ML IV + SPIKE MINIBAG* 100 ML IV SCH (09:07)
[2017-12-14] MEDS: TYLENOL 325 MG TAB PO PRN (09:52)
[2017-12-14] MEDS: NS 1000 ML 1,000 ML IV SCH (12:18)
[2017-12-14] MEDS ORDERED: BENADRYL CAP/TAB 25 MG PO ONE (13:52)
--- NOTE | 2017-12-14 15:33 | DR.H&P ---
H&P - History & Physical for Day of: H&P Date: 12/13/17 - Chief Complaint Chief Complaint: AMS, SOB - History of Present Illness History of Present Illness: IS A 82 YEAR OLD PATIENT OF OURS. SHE PRESENTED TO THE EMERGENCY ROOM WITH FAMILY REPORTING ALTERED MENTAL STATUS AND LABORED BREATHING. SYMPTOMS REPORTEDLY STARTED FIVE DAYS AGO AND HAVE INCREASINGLY WORSENED. FAMILY REPORTS THAT PATIENT WAS RECENTLY DIAGNOSED WITH A URINARY TRACT INFECTION. ON ARRIVAL, PATIENT IS DISORIENTED AND CONFUSED. VITALS WERE 98.4-113-22-+98%-135/63. LABS WERE OBTAINED. ABNORMAL LAB VALUES INCLUDE THE FOLLOWING: WBC 23.8, RBC 3.24, HGB 10.7, HCT 32.0, BUN 28, CREATININE 1.38, GLUCOSE 166, AST 12, CREATINE KINASE 24, ALBUMIN 3.1. URINALYSIS REVEALED: WBC TNTC, RBC NONE SEEN, LEUKOCYTES 3+, BACTERIA TRACE, PROTEIN 2+. BLOOD CULTURES PENDING. EKG REVEALED: SINUS TACHYCARDIA WITH HR 104. A CHEST XRAY WAS OBTAINED AND REVEALED: STABLE CARDIOMEGALY WITHOUT ACUTE AIRSPACE DISEASE OR CHF. BRAIN CT REVEALED: NO ACUTE INTRACRANIAL HEMORRHAGE, MODERATE LEFT SPHENOID SINUS MUCOSAL DISEASE. SHE WAS ADMITTED FOR FURTHER EVALUATION AND TREATMENT OF AMS, UTI, AND SHORTNESS OF BREATH. SHE WAS STARTED ON IV ANTIBIOTICS, RESPIRATORY TREATMENTS, AND STARTED ON NORMAL SALINE AT 75ML/HR. OTHERWISE, WE PLAN TO FOLLOW UP WITH AM LABS AND CONTINUE TO MONITOR. - Past Medical History Past Medical History: GERD, Arthritis - Past Surgical History Surgical History: Appendectomy, Hysterectomy, Ortho Surgery - Family History Family Medical History: Cancer - Social History Does patient currently use any type of tobacco product: No Have you used tobacco products in the last 12 months: No Type of Tobacco Use: None Does any household member use tobacco: No Alcohol Use: None Drug Use: None - Medications Home Medications: No Known Drug Allergies Allergy (Verified 11/08/17 15:48) CONTINUE taking the following medications ranitidine HCl [Zantac Maximum Strength] 150 mg PO BID PRN 12/12/17 [History] - Review of Systems Constitutional: See HPI Eyes: No Symptoms Reported ENT: No Symptoms Reported Respiratory: No Symptoms Reported, Shortness of Breath Cardiovascular: No Symptoms Reported Gastrointestinal: Nausea, Abdominal Pain Genitourinary: No Symptoms Reported Musculoskeletal: No Symptoms Reported Skin: No Symptoms Reported Neurological: Confusion - Physical Exam Vital Signs: Temperature 98.2 F Pulse Rate [Left] 96 Pulse Rate 97 Respiratory Rate 18 Blood Pressure [Left Arm] 133/63 Blood Pressure [Right Arm] 101/53 Blood Pressure 135/63 O2 Sat by Pulse Oximetry 93 Oriented: Not Oriented Eyes: Normal Ear: Normal Nose: Normal Throat: Normal Respiratory: Diminished Throughout Cardiovascular: Tachycardia. negative: S3, S4, Murmur : Normal Auscultation: Bowel Sounds: Normal Palpation: Normal Tenderness: Suprapubic, Mild. negative: Rebound, Guarding, Rigidity Skin: Normal Musculoskeletal: Normal Psychiatric: Other (DISORIENTED NAD CONFUSED ) Mood Description: Calm Affect: Normal Speech Pattern: Clear - Assessment/Plan (1) Urinary tract infection Qualifiers: Urinary tract infection type: acute cystitis Hematuria presence: without hematuria Qualified Code(s): N30.00 - Acute cystitis without hematuria Status: Acute Plan: INVANZ 1GM IV DAILY, IV FLUIDS, CONTINUE TO MONITOR (2) Altered mental status Qualifiers: Altered mental status type: transient alteration of awareness Qualified Code(s): R40.4 - Transient alteration of awareness Status: Acute Plan: TREAT UTI, CONTINUE TO MONITOR (3) SOB (shortness of breath) Status: Acute Plan: DUONEBS, SUPPLEMENTAL OXYGEN, MONITOR CHEST XRAY - Allergies Allergies/Adverse Reactions: Allergies Allergy/AdvReac Type Severity Reaction Status Date / Time No Known Drug Allergies Allergy Verified 11/08/17 15:48
[2017-12-14] MEDS: MILK OF MAGNESIA PO PRN (21:47)
[2017-12-14] MEDS: ROBITUSSIN DM PO PRN (21:47)
[2017-12-15] MEDS: NS 1000 ML 1,000 ML IV SCH ×3 (01:28→16:22)
[2017-12-15] MEDS: DUONEB 0.5 MG/3 MG NEB SCH ×7 (01:47→21:14)
[2017-12-15 06:15] LABS: ALBUMIN 2.2 g/dL (3.4-5.0); CALCIUM 7.8 mg/dL (8.5-10.1); CARBON DIOXIDE 23.7 mmol/L (21-32); COR CA(FOR HYPOALB) 9.2 mg/dL (8.5-10.1); CREATININE 1.16 mg/dL (0.55-1.02); TOTAL PROTEIN 5.9 g/dL (6.4-8.2)
[2017-12-15 06:19] LABS: BASOPHILS # (AUTO) 0.1 X10^3/uL (0.0-0.1); BASOPHILS % (AUTO) 0.6 % (0.2-1.0); EOSINOPHILS # (AUTO) 0.1 x10^3/uL (0.0-0.2); EOSINOPHILS % (AUTO) 0.8 % (0.9-2.9); HEMATOCRIT 25.3 % (36.0-47.0); HEMOGLOBIN 8.8 g/dL (12.0-16.0); LYMPHOCYTES % (AUTO) 7.1 % (21.0-51.0); MEAN CORPUSCULAR VOLUME 97.3 fL (80.0-100.0); MEAN PLATELET VOLUME 8.2 fL (7.4-11.0); MONOCYTES # (AUTO) 0.5 x10^3/uL (0.3-0.8); MONOCYTES % (AUTO) 3.7 % (0.0-13.0); NEUTROPHILS # (AUTO) 12.1 x10^3/uL (2.2-4.8); NEUTROPHILS % (AUTO) 87.8 % (42.0-75.0); PLATELET COUNT 266 X10^3/uL (150.0-450.0); RED CELL DISTRIBUTION WIDTH 12.5 % (11.6-16.5); WHITE BLOOD COUNT 13.8 X10^3/uL (3.6-10.0)
--- NOTE | 2017-12-15 07:45 | RAD ---
HISTORY: Dyspnea Study: Chest AP portable Comparison: 12/14/2017 Findings: Patient is rotated to the left. The heart remains enlarged. No congestive heart failure is noted. No acute alveolar infiltrates or pleural effusions are identified. There is minimal subsegmental atelectasis in the left lung base. The bony thorax is unremarkable. IMPRESSION: Moderate cardiomegaly without congestive heart failure . No definite infiltrates Reported By:
[2017-12-15] MEDS: INVANZ INJ 1 GM VIAL 0.5 GM in NS 100 ML IV + SPIKE MINIBAG* 100 ML IV SCH (09:15)
[2017-12-15] MEDS: NYSTATIN POWDER TOP SCH ×2 (09:15→21:04)
[2017-12-15] MEDS: ZANTAC PO SCH (09:16)
[2017-12-15] MEDS ORDERED: NS 1000 ML 1,000 ML with THIAMINE HCL INJ 100 MG, MAGNESIUM SULFATE 50% INJ 1 G, MVI IN... IV ONE ×5 (11:10)
[2017-12-15] MEDS ORDERED: THIAMINE HCL IV ONE ×3 (12:00)
[2017-12-15] MEDS ORDERED: NS IV ONE ×3 (12:00)
[2017-12-15] MEDS ORDERED: MVI IV ONE ×3 (12:00)
[2017-12-15] MEDS: LASIX IVP SCH ×2 (12:05→21:04)
--- NOTE | 2017-12-15 20:42 | PCM.PROG ---
Progress Note - Progress Note for Day of Date of Exam: 12/14/17 - Subjective Subjective: WAS ADMITTED FOR A URINARY TRACT INFECTION, ALTERED MENTAL STATUS, AND SHORTNESS OF BREATH. TODAY, SHE IS ALERT AND ORIENTED, LYING IN BED ON MORNING ROUNDS. SHE IS NOTED WITH COMPLAINTS OF LOWER ABDOMINAL PAIN AND SHORTNESS OF BREATH. ON EXAMINATION, HEART IS REGULAR IN RATE AND RHYTHM. BILATERAL LUNGS ARE NOTED WITH DIMINISHED LUNG SOUNDS THROUGHOUT. ABDOMEN IS ROUND, SOFT, AND NOTED WITH MILD, SUPRAPUBIC TENDERNESS TO PALPATION. NORMAL BOWEL SOUNDS NOTED IN ALL QUADRANTS. THERE IS TRACE EDEMA NOTED TO BILATERAL LOWER EXTREMITIES. HER VITALS THIS MORNING ARE 98.6-95-18-96%-124/63. LABS WERE OBTAINED. ABNORMAL LAB VALUES INCLUDE THE FOLLOWING: WBC 17.5, RBC 2.40, HGB 8.2, HCT 23.5, CHLORIDE 108, BUN 42, CREATININE 1.83, GLUCOSE 161, CALCIUM 7.7, AST 14, ALT 10, TOTAL PROTEIN 5.6, ALBUMIN 2.2. CARDIAC ENZYMES WITHIN NORMAL LIMITS. A CHEST XRAY WAS OBTAINED TODAY AND REVEALED: MODERATE CARDIOMEGALY WITHOUT CONGESTIVE HEART FAILURE. ECHOCARDIOGRAM REVEALED AN EJECTION FRACTION OF 55%. SHE IS CURRENTLY RECEIVING INVANZ 500MG IV DAILY. OTHERWISE, WE WILL FOLLOW UP WITH AM LABS AND CONTINUE TO MONITOR PATIENT. - Past Medical Family Social History Past Med/Fam/Surg Hx: No changes since H&P Allergies: Allergies No Known Drug Allergies Allergy (Verified 11/08/17 15:48) - Review of Systems ROS: No change since H&P - Vital Signs and I&O's Vital Signs: Temperature 98.9 F Pulse Rate [Left] 91 Pulse Rate 94 Respiratory Rate 20 Blood Pressure [Left Arm] 131/65 Blood Pressure [Right Arm] 101/53 Blood Pressure 135/63 O2 Sat by Pulse Oximetry 97 Intake and Output: Intake & Output 12/13/17 12/14/17 12/15/17 12/16/17 11:59 11:59 11:59 11:59 Intake Total 50 / 50 1550 / 1550 2430 / 2430 1020 / 1020 Output Total 435 / 435 775 / 775 800 / 800 Balance 50 / 50 1115 / 1115 1655 / 1655 220 / 220 - Physical Exam Oriented: Normal Eyes: Normal Ear: Normal Nose: Normal Throat: Normal Cardiovascular: Normal. negative: S3, S4, Murmur : Normal Auscultation: Bowel Sounds: Normal Palpation: Normal Tenderness: Suprapubic, Mild. negative: Rebound, Guarding, Rigidity Skin: Normal Musculoskeletal: Normal Psychiatric: Normal Mood Description: Calm Affect: Normal Speech Pattern: Clear, Appropriate - Laboratory and Diagnostics Result Diagrams: 12/15/17 05:08 12/15/17 05:08 Labs: 12/12/17 00:15 Blood Blood Culture - Preliminary 12/12/17 00:22 Blood Blood Culture - Preliminary 12/13/17 11:20 Urine,Catheterized Urine Culture - Final Laboratory WBC 13.8 X10^3/uL (3.6-10.0) H 12/15/17 05:08 RBC 2.60 X10^6/uL (3.5-5.4) L 12/15/17 05:08 Hgb 8.8 g/dL (12.0-16.0) L 12/15/17 05:08 Hct 25.3 % (36.0-47.0) L 12/15/17 05:08 MCV 97.3 fL (80.0-100.0) 12/15/17 05:08 MCH 34.0 pg (27.0-34.0) 12/15/17 05:08 MCHC 35.0 g/dL (33.0-35.0) 12/15/17 05:08 RDW 12.5 % (11.6-16.5) 12/15/17 05:08 Plt Count 266 X10^3/uL (150.0-450.0) 12/15/17 05:08 Plt Count Comment Adequate (ADEQUATE) 12/14/17 05:53 MPV 8.2 fL (7.4-11.0) 12/15/17 05:08 Neut % (Auto) 87.8 % (42.0-75.0) H 12/15/17 05:08 Lymph % (Auto) 7.1 % (21.0-51.0) L 12/15/17 05:08 [place] % (Auto) 3.7 % (0.0-13.0) 12/15/17 05:08 Eos % (Auto) 0.8 % (0.9-2.9) L 12/15/17 05:08 Baso % (Auto) 0.6 % (0.2-1.0) 12/15/17 05:08 Neut # (Auto) 12.1 x10^3/uL (2.2-4.8) H 12/15/17 05:08 Lymph # (Auto) 1.0 X10^3/uL (1.3-2.9) L 12/15/17 05:08 [place] # (Auto) 0.5 x10^3/uL (0.3-0.8) 12/15/17 05:08 Eos # (Auto) 0.1 x10^3/uL (0.0-0.2) 12/15/17 05:08 Baso # (Auto) 0.1 X10^3/uL (0.0-0.1) 12/15/17 05:08 Absolute Nucleated RBC 0.0 /100WBC 12/15/17 05:08 Total Counted 100 12/14/17 05:53 Neutrophils % (Manual) 80 % (39-76) H 12/14/17 05:53 Band Neutrophils % 10 % (0-10) 12/14/17 05:53 Lymphocytes % (Manual) 8 % (13-43) L 12/14/17 05:53 Monocytes % (Manual) 1 % (4-9) L 12/14/17 05:53 Eosinophils % (Manual) 1 % (0-6) 12/12/17 22:32 Plt Morphology Comment Normal (NORMAL) 12/14/17 05:53 RBC Morphology Normal (NORMAL) 12/14/17 05:53 Sodium 143 mmol/L (136-145) 12/15/17 05:08 Corrected Sodium 144 mmol/L (136-145) 12/15/17 05:08 Potassium 3.9 mmol/L (3.5-5.1) 12/15/17 05:08 Chloride 110 mmol/L (98-107) H 12/15/17 05:08 Carbon Dioxide 23.7 mmol/L (21-32) 12/15/17 05:08 BUN 30 mg/dL (7-18) H 12/15/17 05:08 Creatinine 1.16 mg/dL (0.55-1.02) H 12/15/17 05:08 Est GFR (MDRD) Af Amer 57 (>60) L 12/15/17 05:08 Est GFR (MDRD) Non-Af 47 (>60) L 12/15/17 05:08 Glucose 144 mg/dL (65-99) H 12/15/17 05:08 Lactic Acid 1.5 mmol/L (0.4-2.0) 12/12/17 00:15 Calcium 7.8 mg/dL (8.5-10.1) L 12/15/17 05:08 Corrected Calcium 9.2 mg/dL (8.5-10.1) 12/15/17 05:08 Magnesium 1.6 mg/dL (1.7-2.9) L 12/13/17 05:09 Total Bilirubin 0.20 mg/dL (0.2-1.0) 12/15/17 05:08 AST 11 Units/L (15-37) L 12/15/17 05:08 ALT 13 Units/L (12-78) 12/15/17 05:08 Alkaline Phosphatase 65 Units/L (46-116) 12/15/17 05:08 Creatine Kinase 56 Units/L (26-192) 12/14/17 05:53 CK-MB (CK-2) < 1.0 ng/mL (0-4.0) 12/14/17 05:53 CK/CKMB % Calc 1.8 % (<4) 12/14/17 05:53 Troponin I 0.04 ng/mL (0-1.5) 12/14/17 05:53 Total Protein 5.9 g/dL (6.4-8.2) L 12/15/17 05:08 Albumin 2.2 g/dL (3.4-5.0) L 12/15/17 05:08 Globulin 3.7 g/dL (2.5-4.5) 12/15/17 05:08 Albumin/Globulin Ratio 0.6 Ratio (1.1-2.1) L 12/15/17 05:08 Specimen Type Catherized urine 12/13/17 11:20 Urine Color Brown (YELLOW) 12/13/17 11:20 Urine Appearance Hazy (CLEAR) 12/13/17 11:20 Urine pH 5.0 (5.0 - 8.0) 12/13/17 11:20 Ur Specific [place] 1.025 (1.000-1.030) 12/13/17 11:20 Urine Protein 2+ (NEGATIVE) 12/13/17 11:20 Urine Glucose (UA) Negative (NEGATIVE) 12/13/17 11:20 Urine Ketones Negative (NEGATIVE) 12/13/17 11:20 Urine Occult Blood 3+ (NEGATIVE) 12/13/17 11:20 Urine Nitrite Positive (NEGATIVE) 12/13/17 11:20 Urine Bilirubin 2+ (NEGATIVE) 12/13/17 11:20 Urine Urobilinogen 2+ (NORMAL) 12/13/17 11:20 Ur Leukocyte Esterase 2+ (NEGATIVE) 12/13/17 11:20 Urine RBC 5-10 /HPF (NONE SEEN) 12/13/17 11:20 Urine WBC 3-5 /HPF (NONE SEEN) 12/13/17 11:20 Ur Squamous Epith Cells Negative /HPF (NEGATIVE) 12/13/17 11:20 Amorphous Sediment 2+ /HPF (NEGATIVE) 12/13/17 11:20 Urine Bacteria 3+ /HPF (NEGATIVE) 12/13/17 11:20 Ur Culture Indicated? Yes/culture set up 12/13/17 11:20 - Plan (1) Urinary tract infection Status: Acute Qualifiers: Urinary tract infection type: acute cystitis Hematuria presence: without hematuria Qualified Code(s): N30.00 - Acute cystitis without hematuria Plan: INVANZ 500MG IV DAILY, IV FLUIDS, CONTINUE TO MONITOR (2) Altered mental status Status: Acute Qualifiers: Altered mental status type: transient alteration of awareness Qualified C ode(s): R40.4 - Transient alteration of awareness Plan: TREAT UTI, CONTINUE TO MONITOR (3) SOB (shortness of breath) Status: Acute Plan: DUONEBS, SUPPLEMENTAL OXYGEN, MONITOR CHEST XRAY
[2017-12-16] MEDS: ROBITUSSIN DM PO PRN ×3 (06:04→20:50)
[2017-12-16 06:31] LABS: BASOPHILS # (AUTO) 0.1 X10^3/uL (0.0-0.1); BASOPHILS % (AUTO) 0.5 % (0.2-1.0); EOSINOPHILS # (AUTO) 0.2 x10^3/uL (0.0-0.2); EOSINOPHILS % (AUTO) 1.4 % (0.9-2.9); HEMOGLOBIN 8.5 g/dL (12.0-16.0); LYMPHOCYTES # (AUTO) 1.3 X10^3/uL (1.3-2.9); LYMPHOCYTES % (AUTO) 12.2 % (21.0-51.0); MEAN CORPUSCULAR HEMOGLOBIN 34.2 pg (27.0-34.0); MEAN CORPUSCULAR HGB CONC 35.4 g/dL (33.0-35.0); MEAN CORPUSCULAR VOLUME 96.8 fL (80.0-100.0); MONOCYTES # (AUTO) 0.6 x10^3/uL (0.3-0.8); MONOCYTES % (AUTO) 5.1 % (0.0-13.0); NEUTROPHILS # (AUTO) 8.7 x10^3/uL (2.2-4.8); NEUTROPHILS % (AUTO) 80.8 % (42.0-75.0); PLATELET COUNT 273 X10^3/uL (150.0-450.0); RED BLOOD COUNT 2.48 X10^6/uL (3.5-5.4); RED CELL DISTRIBUTION WIDTH 12.6 % (11.6-16.5); WHITE BLOOD COUNT 10.8 X10^3/uL (3.6-10.0)
[2017-12-16 07:01] LABS: ALANINE AMINOTRANSFERASE 12 Units/L (12-78); ALBUMIN 2.1 g/dL (3.4-5.0); ALKALINE PHOSPHATASE 60 Units/L (46-116); ASPARTATE AMINO TRANSFERASE 12 Units/L (15-37); BLOOD UREA NITROGEN 21 mg/dL (7-18); CARBON DIOXIDE 23.6 mmol/L (21-32); CHLORIDE 108 mmol/L (98-107); COR CA(FOR HYPOALB) 9.5 mg/dL (8.5-10.1); COR NA(FOR HYPERGLY) 143 mmol/L (136-145); CREATININE 0.99 mg/dL (0.55-1.02); SODIUM 142 mmol/L (136-145); TOTAL PROTEIN 5.6 g/dL (6.4-8.2); eGFR NON BLACK RACES 57 (>60)
--- NOTE | 2017-12-16 07:09 | RAD ---
HISTORY: Dyspnea Study: Chest AP portable Comparison: 12/15/2017 Findings: The patient is rotated to the left. The heart remains enlarged. No congestive heart failure is noted. No acute alveolar infiltrates or pleural effusions are identified. Interstitial lung changes are present. The bony thorax is unremarkable. IMPRESSION: Moderate cardiomegaly without congestive heart failure No acute infiltrates Mild interstitial lung changes, chronic Reported By:
[2017-12-16] MEDS: INVANZ INJ 1 GM VIAL 0.5 GM in NS 100 ML IV + SPIKE MINIBAG* 100 ML IV SCH (08:07)
[2017-12-16] MEDS: NYSTATIN POWDER TOP SCH ×2 (08:07→20:50)
[2017-12-16] MEDS: ZANTAC PO SCH (08:07)
[2017-12-16] MEDS: NS 1000 ML 1,000 ML IV SCH (08:08)
[2017-12-16] MEDS: DUONEB 0.5 MG/3 MG NEB SCH ×4 (08:55→20:00)
[2017-12-16] MEDS: HEMOCYTE-PLUS PO SCH (10:10)
[2017-12-16] MEDS: ALBUMIN HUMAN 25%- 100 ML 100 ML IV SCH (10:10)
[2017-12-16] MEDS ORDERED: VISTARIL PO PRN (17:15)
--- NOTE | 2017-12-16 17:30 | PCM.PROG ---
Progress Note - Progress Note for Day of Date of Exam: 12/15/17 - Subjective Subjective: WAS ADMITTED FOR A URINARY TRACT INFECTION, ALTERED MENTAL STATUS, AND SHORTNESS OF BREATH. TODAY, SHE IS ALERT AND ORIENTED, LYING IN BED ON MORNING ROUNDS. SHE IS NOTED WITH COMPLAINTS OF SHORTNESS OF BREATH AND GENERALIZED WEAKNESS. ON EXAMINATION, HEART IS REGULAR IN RATE AND RHYTHM. BILATERAL LUNGS ARE NOTED WITH DIMINISHED LUNG SOUNDS THROUGHOUT. ABDOMEN IS ROUND, SOFT, AND NOTED WITH MILD, SUPRAPUBIC TENDERNESS TO PALPATION. NORMAL BOWEL SOUNDS NOTED IN ALL QUADRANTS. THERE IS TRACE EDEMA NOTED TO BILATERAL LOWER EXTREMITIES. HER VITALS THIS MORNING ARE 98.5-86-20-94%-161/70. LABS WERE OBTAINED. ABNORMAL LAB VALUES INCLUDE THE FOLLOWING: WBC 13.8, RBC 2.60, HGB 88, HCT 25.3, CHLORIDE 110, BUN 30, CREATININE 1.16, GLUCOSE 144, CALCIUM 7.8, AST 11, TOTAL PROTEIN 5.9, ALBUMIN 2.2. CARDIAC ENZYMES WITHIN NORMAL LIMITS. A CHEST XRAY WAS OBTAINED TODAY AND REVEALED: MODERATE CARDIOMEGALY WITHOUT CONGESTIVE HEART FAILURE. SHE IS CURRENTLY RECEIVING INVANZ 500MG IV DAILY. TODAY, WE WILL START HEMOCYTE 1 CAPSULE DAILY, LASIX 20MG IV BID, AND ONE AND ONE BAG OF MULTIVITAMINS. OTHERWISE, WE WILL CONTINUE WITH CURRENT PLAN OF CARE. WE WILL FOLLOW UP WITH AM LABS AND CONTINUE TO MONITOR PATIENT. - Past Medical Family Social History Past Med/Fam/Surg Hx: No changes since H&P Allergies: Allergies No Known Drug Allergies Allergy (Verified 11/08/17 15:48) - Review of Systems ROS: No change since H&P - Vital Signs and I&O's Vital Signs: Temperature 98.2 F Pulse Rate [Left] 90 Pulse Rate 85 Respiratory Rate 20 Blood Pressure [Left Arm] 130/66 Blood Pressure [Right Arm] 101/53 Blood Pressure 135/63 O2 Sat by Pulse Oximetry 97 Intake and Output: Intake & Output 12/14/17 12/15/17 12/16/17 12/17/17 11:59 11:59 11:59 11:59 Intake Total 1550 / 1550 2430 / 2430 2405 / 2405 680 / 680 Output Total 435 / 435 775 / 775 2875 / 2875 150 / 150 Balance 1115 / 1115 1655 / 1655 -470 / -470 530 / 530 - Physical Exam Oriented: Normal Eyes: Normal Ear: Normal Nose: Normal Throat: Normal Cardiovascular: Normal. negative: S3, S4, Murmur : Normal Auscultation: Bowel Sounds: Normal Palpation: Normal Tenderness: Suprapubic, Mild. negative: Rebound, Guarding, Rigidity Skin: Normal Musculoskeletal: Normal Psychiatric: Normal Mood Description: Calm Affect: Normal Speech Pattern: Clear, Appropriate - Laboratory and Diagnostics Result Diagrams: 12/16/17 05:53 12/16/17 05:53 Labs: 12/12/17 00:22 Blood Blood Culture - Final 12/12/17 00:15 Blood Blood Culture - Preliminary 12/13/17 11:20 Urine,Catheterized Urine Culture - Final Laboratory WBC 10.8 X10^3/uL (3.6-10.0) H 12/16/17 05:53 RBC 2.48 X10^6/uL (3.5-5.4) L 12/16/17 05:53 Hgb 8.5 g/dL (12.0-16.0) L 12/16/17 05:53 Hct 24.0 % (36.0-47.0) L 12/16/17 05:53 MCV 96.8 fL (80.0-100.0) 12/16/17 05:53 MCH 34.2 pg (27.0-34.0) H 12/16/17 05:53 MCHC 35.4 g/dL (33.0-35.0) H 12/16/17 05:53 RDW 12.6 % (11.6-16.5) 12/16/17 05:53 Plt Count 273 X10^3/uL (150.0-450.0) 12/16/17 05:53 Plt Count Comment Adequate (ADEQUATE) 12/14/17 05:53 MPV 8.0 fL (7.4-11.0) 12/16/17 05:53 Neut % (Auto) 80.8 % (42.0-75.0) H 12/16/17 05:53 Lymph % (Auto) 12.2 % (21.0-51.0) L 12/16/17 05:53 [place] % (Auto) 5.1 % (0.0-13.0) 12/16/17 05:53 Eos % (Auto) 1.4 % (0.9-2.9) 12/16/17 05:53 Baso % (Auto) 0.5 % (0.2-1.0) 12/16/17 05:53 Neut # (Auto) 8.7 x10^3/uL (2.2-4.8) H 12/16/17 05:53 Lymph # (Auto) 1.3 X10^3/uL (1.3-2.9) 12/16/17 05:53 [place] # (Auto) 0.6 x10^3/uL (0.3-0.8) 12/16/17 05:53 Eos # (Auto) 0.2 x10^3/uL (0.0-0.2) 12/16/17 05:53 Baso # (Auto) 0.1 X10^3/uL (0.0-0.1) 12/16/17 05:53 Absolute Nucleated RBC 0.0 /100WBC 12/16/17 05:53 Total Counted 100 12/14/17 05:53 Neutrophils % (Manual) 80 % (39-76) H 12/14/17 05:53 Band Neutrophils % 10 % (0-10) 12/14/17 05:53 Lymphocytes % (Manual) 8 % (13-43) L 12/14/17 05:53 Monocytes % (Manual) 1 % (4-9) L 12/14/17 05:53 Eosinophils % (Manual) 1 % (0-6) 12/12/17 22:32 Plt Morphology Comment Normal (NORMAL) 12/14/17 05:53 RBC Morphology Normal (NORMAL) 12/14/17 05:53 Sodium 142 mmol/L (136-145) 12/16/17 05:53 Corrected Sodium 143 mmol/L (136-145) 12/16/17 05:53 Potassium 3.7 mmol/L (3.5-5.1) 12/16/17 05:53 Chloride 108 mmol/L (98-107) H 12/16/17 05:53 Carbon Dioxide 23.6 mmol/L (21-32) 12/16/17 05:53 BUN 21 mg/dL (7-18) H 12/16/17 05:53 Creatinine 0.99 mg/dL (0.55-1.02) 12/16/17 05:53 Est GFR (MDRD) Af Amer > 60 (>60) 12/16/17 05:53 Est GFR (MDRD) Non-Af 57 (>60) L 12/16/17 05:53 Glucose 127 mg/dL (65-99) H 12/16/17 05:53 Lactic Acid 1.5 mmol/L (0.4-2.0) 12/12/17 00:15 Calcium 8.0 mg/dL (8.5-10.1) L 12/16/17 05:53 Corrected Calcium 9.5 mg/dL (8.5-10.1) 12/16/17 05:53 Magnesium 1.6 mg/dL (1.7-2.9) L 12/13/17 05:09 Total Bilirubin 0.20 mg/dL (0.2-1.0) 12/16/17 05:53 AST 12 Units/L (15-37) L 12/16/17 05:53 ALT 12 Units/L (12-78) 12/16/17 05:53 Alkaline Phosphatase 60 Units/L (46-116) 12/16/17 05:53 Creatine Kinase 56 Units/L (26-192) 12/14/17 05:53 CK-MB (CK-2) < 1.0 ng/mL (0-4.0) 12/14/17 05:53 CK/CKMB % Calc 1.8 % (<4) 12/14/17 05:53 Troponin I 0.04 ng/mL (0-1.5) 12/14/17 05:53 Total Protein 5.6 g/dL (6.4-8.2) L 12/16/17 05:53 Albumin 2.1 g/dL (3.4-5.0) L 12/16/17 05:53 Globulin 3.5 g/dL (2.5-4.5) 12/16/17 05:53 Albumin/Globulin Ratio 0.6 Ratio (1.1-2.1) L 12/16/17 05:53 Specimen Type Catherized urine 12/13/17 11:20 Urine Color Brown (YELLOW) 12/13/17 11:20 Urine Appearance Hazy (CLEAR) 12/13/17 11:20 Urine pH 5.0 (5.0 - 8.0) 12/13/17 11:20 Ur Specific [place] 1.025 (1.000-1.030) 12/13/17 11:20 Urine Protein 2+ (NEGATIVE) 12/13/17 11:20 Urine Glucose (UA) Negative (NEGATIVE) 12/13/17 11:20 Urine Ketones Negative (NEGATIVE) 12/13/17 11:20 Urine Occult Blood 3+ (NEGATIVE) 12/13/17 11:20 Urine Nitrite Positive (NEGATIVE) 12/13/17 11:20 Urine Bilirubin 2+ (NEGATIVE) 12/13/17 11:20 Urine Urobilinogen 2+ (NORMAL) 12/13/17 11:20 Ur Leukocyte Esterase 2+ (NEGATIVE) 12/13/17 11:20 Urine RBC 5-10 /HPF (NONE SEEN) 12/13/17 11:20 Urine WBC 3-5 /HPF (NONE SEEN) 12/13/17 11:20 Ur Squamous Epith Cells Negative /HPF (NEGATIVE) 12/13/17 11:20 Amorphous Sediment 2+ /HPF (NEGATIVE) 12/13/17 11:20 Urine Bacteria 3+ /HPF (NEGATIVE) 12/13/17 11:20 Ur Culture Indicated? Yes/culture set up 12/13/17 11:20 - Plan (1) Urinary tract infection Status: Acute Qualifiers: Urinary tract infection type: acute cystitis Hematuria presence: without hematuria Qualified Code(s): N30.00 - Acute cystitis without hematuria Plan: INVANZ 500MG IV DAILY, IV FLUIDS, CONTINUE TO MONITOR (2) Altered mental status Status: Acute Qualifiers: Altered mental status type: transient alteration of awareness Qualified Code(s): R40.4 - Transient alteration of awareness Plan: TREAT UTI, CONTINUE TO MONITOR (3) SOB (shortness of breath) Status: Acute Plan: DUONEBS, SUPPLEMENTAL OXYGEN, MONITOR CHEST XRAY (4) Anemia Status: Acute Qualifiers: Anemia type: iron deficiency Iron deficiency anemia type: unspecified iron deficiency Qualified Code(s): D50.9 - Iron deficiency anemia, unspecified Plan: HEMOCYTE 1 CAPSULE PO DAILY, CONTINUE TO MONITOR
[2017-12-16] MEDS: TYLENOL 325 MG TAB PO PRN (20:57)
[2017-12-17 06:19] LABS: BASOPHILS # (AUTO) 0.1 X10^3/uL (0.0-0.1); BASOPHILS % (AUTO) 0.7 % (0.2-1.0); EOSINOPHILS # (AUTO) 0.3 x10^3/uL (0.0-0.2); EOSINOPHILS % (AUTO) 2.2 % (0.9-2.9); HEMATOCRIT 24.1 % (36.0-47.0); HEMOGLOBIN 8.5 g/dL (12.0-16.0); LYMPHOCYTES # (AUTO) 1.6 X10^3/uL (1.3-2.9); LYMPHOCYTES % (AUTO) 13.5 % (21.0-51.0); MEAN CORPUSCULAR HEMOGLOBIN 34.3 pg (27.0-34.0); MEAN CORPUSCULAR HGB CONC 35.2 g/dL (33.0-35.0); MEAN CORPUSCULAR VOLUME 97.5 fL (80.0-100.0); MEAN PLATELET VOLUME 8.1 fL (7.4-11.0); MONOCYTES # (AUTO) 0.6 x10^3/uL (0.3-0.8); NEUTROPHILS # (AUTO) 9.3 x10^3/uL (2.2-4.8); NEUTROPHILS % (AUTO) 78.6 % (42.0-75.0); PLATELET COUNT 276 X10^3/uL (150.0-450.0); RED BLOOD COUNT 2.47 X10^6/uL (3.5-5.4); RED CELL DISTRIBUTION WIDTH 12.6 % (11.6-16.5); WHITE BLOOD COUNT 11.8 X10^3/uL (3.6-10.0)
[2017-12-17 06:26] LABS: ALANINE AMINOTRANSFERASE 13 Units/L (12-78); ALBUMIN 2.5 g/dL (3.4-5.0); ALKALINE PHOSPHATASE 65 Units/L (46-116); ASPARTATE AMINO TRANSFERASE 12 Units/L (15-37); BLOOD UREA NITROGEN 21 mg/dL (7-18); CALCIUM 8.2 mg/dL (8.5-10.1); CARBON DIOXIDE 26.2 mmol/L (21-32); CHLORIDE 108 mmol/L (98-107); COR CA(FOR HYPOALB) 9.4 mg/dL (8.5-10.1); COR NA(FOR HYPERGLY) 146 mmol/L (136-145); CREATININE 1.07 mg/dL (0.55-1.02); SODIUM 145 mmol/L (136-145); TOTAL PROTEIN 5.8 g/dL (6.4-8.2); eGFR NON BLACK RACES 52 (>60)
[2017-12-17] MEDS: DUONEB 0.5 MG/3 MG NEB SCH ×4 (08:58→20:44)
[2017-12-17] MEDS: ZANTAC PO SCH (09:00)
[2017-12-17] MEDS: INVANZ INJ 1 GM VIAL 0.5 GM in NS 100 ML IV + SPIKE MINIBAG* 100 ML IV SCH (09:00)
[2017-12-17] MEDS: ALBUMIN HUMAN 25%- 100 ML 100 ML IV SCH (09:00)
[2017-12-17] MEDS: NYSTATIN POWDER TOP SCH ×2 (09:00→20:59)
[2017-12-17] MEDS: HEMOCYTE-PLUS PO SCH (09:00)
--- NOTE | 2017-12-17 12:00 | RAD ---
Examination: AP chest History: SOB, CHF Comparison 12/16/2017 Findings: Continued borderline cardiomegaly with diffuse interstitial pulmonary process which may be chronic. The left diaphragm is not well visualize. There is no evidence for consolidation or pneumothorax. Impression: There is little radiographic change since prior exam. The left diaphragm is not well visualized. There may be a left lower lobe infiltrate. Follow-up suggested, PA and lateral views if possible. Reported By:
[2017-12-17] MEDS ORDERED: LASIX IVP ONE (12:20)
[2017-12-17] MEDS ORDERED: TUSSIONEX PENNKINETIC SUSP PO PRN (12:50)
[2017-12-17] MEDS ORDERED: NS 1/2 1000 ML IV 1,000 ML IV SCH (13:00)
[2017-12-17] MEDS: ROBITUSSIN DM PO SCH ×3 (13:07→20:59)
[2017-12-18 05:54] LABS: BASOPHILS # (AUTO) 0.1 X10^3/uL (0.0-0.1); BASOPHILS % (AUTO) 0.5 % (0.2-1.0); EOSINOPHILS # (AUTO) 0.3 x10^3/uL (0.0-0.2); EOSINOPHILS % (AUTO) 2.6 % (0.9-2.9); HEMATOCRIT 23.4 % (36.0-47.0); HEMOGLOBIN 8.2 g/dL (12.0-16.0); LYMPHOCYTES % (AUTO) 17.1 % (21.0-51.0); MEAN CORPUSCULAR HEMOGLOBIN 33.7 pg (27.0-34.0); MEAN CORPUSCULAR HGB CONC 35.2 g/dL (33.0-35.0); MEAN CORPUSCULAR VOLUME 95.8 fL (80.0-100.0); MONOCYTES # (AUTO) 0.6 x10^3/uL (0.3-0.8); MONOCYTES % (AUTO) 5.1 % (0.0-13.0); NEUTROPHILS # (AUTO) 8.7 x10^3/uL (2.2-4.8); NEUTROPHILS % (AUTO) 74.7 % (42.0-75.0); PLATELET COUNT 283 X10^3/uL (150.0-450.0); RED BLOOD COUNT 2.45 X10^6/uL (3.5-5.4); RED CELL DISTRIBUTION WIDTH 12.7 % (11.6-16.5); WHITE BLOOD COUNT 11.7 X10^3/uL (3.6-10.0)
[2017-12-18 06:04] LABS: ALANINE AMINOTRANSFERASE 12 Units/L (12-78); ALBUMIN 2.6 g/dL (3.4-5.0); ALKALINE PHOSPHATASE 50 Units/L (46-116); ASPARTATE AMINO TRANSFERASE 9 Units/L (15-37); BLOOD UREA NITROGEN 22 mg/dL (7-18); CARBON DIOXIDE 28.7 mmol/L (21-32); CHLORIDE 107 mmol/L (98-107); COR CA(FOR HYPOALB) 9.1 mg/dL (8.5-10.1); CREATININE 0.97 mg/dL (0.55-1.02); SODIUM 143 mmol/L (136-145); TOTAL PROTEIN 5.6 g/dL (6.4-8.2); eGFR NON BLACK RACES 58 (>60)
[2017-12-18 06:41] LABS: BAND NEUTROPHILS % 4 % (0-10); PLATELET MORPHOLOGY COMMENT NORMAL (NORMAL)
[2017-12-18] MEDS: DUONEB 0.5 MG/3 MG NEB SCH ×4 (08:59→20:50)
[2017-12-18] MEDS: INVANZ INJ 1 GM VIAL 0.5 GM in NS 100 ML IV + SPIKE MINIBAG* 100 ML IV SCH (09:40)
[2017-12-18] MEDS: ROBITUSSIN DM PO SCH ×4 (09:40→21:15)
[2017-12-18] MEDS: HEMOCYTE-PLUS PO SCH (09:40)
[2017-12-18] MEDS: ZANTAC PO SCH (09:40)
[2017-12-18] MEDS: NYSTATIN POWDER TOP SCH ×2 (09:40→21:15)
[2017-12-18] MEDS: MUCOMYST 20% 200 MG/ML NEB SCH ×3 (12:03→20:50)
[2017-12-18] MEDS: MILK OF MAGNESIA PO PRN (13:44)
--- NOTE | 2017-12-18 16:16 | US ---
HISTORY: Left groin swelling and erythema Study: Left groin ultrasound Comparison: None Technique: Multiple grayscale and color Doppler images of the left groin were obtained. Findings: Targeted sonographic evaluation of the region of interest demonstrates a 7 x 6 cm complex fluid collection with posterior acoustical enhancement and peripheral vascularity highly suspicious for abscess. IMPRESSION: Findings most consistent with left groin abscess. Reported By:
[2017-12-18] MEDS ORDERED: NS 250 ML IV 250 ML IV ONE (17:35)
[2017-12-18] MEDS ORDERED: NS 250 ML IV 250 ML IV PRN (17:50)
--- NOTE | 2017-12-18 21:08 | RAD ---
History: Shortness of breath Technique: AP chest Comparison: 12/18/2027 Findings: Allowing for differences in technique, positioning, and degree of inspiration, there has been no significant interval change in the radiographic appearance of the chest. Oblique linear opacity left lung base consistent with subsegmental atelectasis versus scarring. Diffuse prominence of the interstitium again noted suggesting chronic interstitial changes. Mild enlargement of the cardiac silhouette. Impression: 1. No significant interval change with findings as above. Reported By:
[2017-12-18] MEDS: TYLENOL 325 MG TAB PO PRN (21:15)
--- NOTE | 2017-12-18 22:50 | CT ---
CT abdomen and pelvis without contrast Indication: Pain and discomfort in the lower abdomen Technique: Helical images through the abdomen and pelvis without contrast. Coronal and sagittal reformats provided. Comparison: None available Findings: Review of bone windows shows fracture of the right inferior pubic ramus, probably chronic. Bar spine DJD noted. Limited images through the lower chest demonstrate cardiomegaly and moderate coronary artery disease. There is dependent atelectasis and small left effusion. Trace right effusion noted. Abdomen: Gallstones are seen in the gallbladder. The liver, spleen, adrenal glands and pancreas are normal. Duodenal diverticulum is noted. The stomach and small bowel are otherwise normal. Vascular plaque is noted. Kidneys show no hydroureteronephrosis Appendix is not seen without pericecal inflammation. Colonic diverticulosis is noted. Pelvis: Urinary bladder is collapsed around a Guerrero catheter. Uterus is absent. No adnexal region lesions seen. There is gas and fluid collection in the left inguinal region tracking into the left abdominal wall. This is subcutaneous, probably within the abdominal wall muscular fascia. Collection measures 5.2 x 8.0 x 13.6 cm on axial image 82 and coronal image 22. Impression: 1. Left inguinal and abdominal wall abscess, probably involving the abdominal wall musculature and fascia. Surgical consultation recommended 2. Vascular plaque, cardiomegaly, effusions, dependent atelectasis, diverticulosis and other findings as above. The Reported By:
[2017-12-19 06:17] LABS: BASOPHILS # (AUTO) 0.1 X10^3/uL (0.0-0.1); BASOPHILS % (AUTO) 0.6 % (0.2-1.0); EOSINOPHILS # (AUTO) 0.3 x10^3/uL (0.0-0.2); EOSINOPHILS % (AUTO) 2.3 % (0.9-2.9); HEMATOCRIT 25.5 % (36.0-47.0); HEMOGLOBIN 8.9 g/dL (12.0-16.0); LYMPHOCYTES # (AUTO) 1.8 X10^3/uL (1.3-2.9); LYMPHOCYTES % (AUTO) 12.7 % (21.0-51.0); MEAN CORPUSCULAR HEMOGLOBIN 33.9 pg (27.0-34.0); MEAN CORPUSCULAR HGB CONC 35.1 g/dL (33.0-35.0); MEAN CORPUSCULAR VOLUME 96.7 fL (80.0-100.0); MEAN PLATELET VOLUME 7.8 fL (7.4-11.0); MONOCYTES # (AUTO) 0.7 x10^3/uL (0.3-0.8); MONOCYTES % (AUTO) 4.7 % (0.0-13.0); NEUTROPHILS # (AUTO) 11.2 x10^3/uL (2.2-4.8); NEUTROPHILS % (AUTO) 79.7 % (42.0-75.0); PLATELET COUNT 311 X10^3/uL (150.0-450.0); RED BLOOD COUNT 2.64 X10^6/uL (3.5-5.4); RED CELL DISTRIBUTION WIDTH 12.3 % (11.6-16.5); WHITE BLOOD COUNT 14.1 X10^3/uL (3.6-10.0)
[2017-12-19 06:31] LABS: ALANINE AMINOTRANSFERASE 13 Units/L (12-78); ALBUMIN 2.6 g/dL (3.4-5.0); ALKALINE PHOSPHATASE 52 Units/L (46-116); ASPARTATE AMINO TRANSFERASE 12 Units/L (15-37); BLOOD UREA NITROGEN 21 mg/dL (7-18); CALCIUM 8.1 mg/dL (8.5-10.1); CARBON DIOXIDE 32.8 mmol/L (21-32); CHLORIDE 107 mmol/L (98-107); COR CA(FOR HYPOALB) 9.2 mg/dL (8.5-10.1); COR NA(FOR HYPERGLY) 144 mmol/L (136-145); CREATININE 0.98 mg/dL (0.55-1.02); SODIUM 144 mmol/L (136-145); TOTAL PROTEIN 5.6 g/dL (6.4-8.2); eGFR NON BLACK RACES 58 (>60)
--- NOTE | 2017-12-19 08:36 | PCM.PROG ---
Progress Note - Progress Note for Day of Date of Exam: 12/16/17 - Subjective Subjective: WAS ADMITTED FOR A URINARY TRACT INFECTION, ALTERED MENTAL STATUS, AND SHORTNESS OF BREATH. TODAY, SHE IS ALERT AND ORIENTED, LYING IN BED ON MORNING ROUNDS. SHE CONTINUES WITH COMPLAINTS OF SHORTNESS OF BREATH, MILD ABDOMINAL PAIN, AND GENERALIZED WEAKNESS TODAY. ON EXAMINATION, HEART IS REGULAR IN RATE AND RHYTHM. BILATERAL LUNGS ARE NOTED WITH DIMINISHED LUNG SOUNDS THROUGHOUT. ABDOMEN IS ROUND, SOFT, AND NOTED WITH MILD, SUPRAPUBIC TENDERNESS TO PALPATION. NORMAL BOWEL SOUNDS NOTED IN ALL QUADRANTS. THERE IS TRACE EDEMA NOTED TO BILATERAL LOWER EXTREMITIES. HER VITALS THIS MORNING ARE 99.0-94-20-97%-175/81. LABS WERE OBTAINED. ABNORMAL LAB VALUES INCLUDE THE FOLLOWING: WBC 10.8, RBC 2.48, HGB 8.5, HCT 24.0, CHLORIDE 108, BUN 21, GLUCOSE 127, CALCIUM 8.0, AST 12, TOTAL PROTEIN 5.6, ALBUMIN 2.1. A CHEST XRAY WAS OBTAINED TODAY AND REVEALED: Moderate cardiomegaly without congestive heart failure. No acute infiltrates. Mild interstitial lung changes, chronic. SHE IS C URRENTLY RECEIVING INVANZ 500MG IV DAILY WELL IV FLUIDS. TODAY, WE WILL START ALBUMIN 25% IV DAILY. OTHERWISE, WE WILL CONTINUE WITH CURRENT PLAN OF CARE. WE WILL FOLLOW UP WITH AM LABS AND CONTINUE TO MONITOR PATIENT. - Past Medical Family Social History Past Med/Fam/Surg Hx: No changes since H&P Allergies: Allergies No Known Drug Allergies Allergy (Verified 11/08/17 15:48) - Review of Systems ROS: No change since H&P - Vital Signs and I&O's Vital Signs: Temperature 98.8 F Pulse Rate [Left] 77 Pulse Rate 80 Respiratory Rate 18 Blood Pressure [Left Arm] 146/62 Blood Pressure [Right Arm] 101/53 Blood Pressure 135/63 O2 Sat by Pulse Oximetry 97 Intake and Output: Intake & Output 12/16/17 12/17/17 12/18/17 12/19/17 12:59 12:59 11:59 11:59 Intake Total 536 / 536 Output Total 225 / 225 Balance 311 / 311 - Physical Exam Oriented: Normal Eyes: Normal Ear: Normal Nose: Normal Throat: Normal Cardiovascular: Normal. negative: S3, S4, Murmur : Normal Auscultation: Bowel Sounds: Normal Palpation: Normal Tenderness: Suprapubic, Mild. negative: Rebound, Guarding, Rigidity Skin: Normal Musculoskeletal: Normal Psychiatric: Normal Mood Description: Calm Affect: Normal Speech Pattern: Clear, Appropriate - Laboratory and Diagnostics Result Diagrams: 12/19/17 05:55 12/19/17 05:55 Labs: 12/12/17 00:15 Blood Blood Culture - Final 12/12/17 00:22 Blood Blood Culture - Final 12/13/17 11:20 Urine,Catheterized Urine Culture - Final Laboratory WBC 14.1 X10^3/uL (3.6-10.0) H 12/19/17 05:55 RBC 2.64 X10^6/uL (3.5-5.4) L 12/19/17 05:55 Hgb 8.9 g/dL (12.0-16.0) L 12/19/17 05:55 Hct 25.5 % (36.0-47.0) L 12/19/17 05:55 MCV 96.7 fL (80.0-100.0) 12/19/17 05:55 MCH 33.9 pg (27.0-34.0) 12/19/17 05:55 MCHC 35.1 g/dL (33.0-35.0) H 12/19/17 05:55 RDW 12.3 % (11.6-16.5) 12/19/17 05:55 Plt Count 311 X10^3/uL (150.0-450.0) 12/19/17 05:55 Plt Count Comment Adequate (ADEQUATE) 12/18/17 04:10 MPV 7.8 fL (7.4-11.0) 12/19/17 05:55 Neut % (Auto) 79.7 % (42.0-75.0) H 12/19/17 05:55 Lymph % (Auto) 12.7 % (21.0-51.0) L 12/19/17 05:55 [place] % (Auto) 4.7 % (0.0-13.0) 12/19/17 05:55 Eos % (Auto) 2.3 % (0.9-2.9) 12/19/17 05:55 Baso % (Auto) 0.6 % (0.2-1.0) 12/19/17 05:55 Neut # (Auto) 11.2 x10^3/uL (2.2-4.8) H 12/19/17 05:55 Lymph # (Auto) 1.8 X10^3/uL (1.3-2.9) 12/19/17 05:55 [place] # (Auto) 0.7 x10^3/uL (0.3-0.8) 12/19/17 05:55 Eos # (Auto) 0.3 x10^3/uL (0.0-0.2) H 12/19/17 05:55 Baso # (Auto) 0.1 X10^3/uL (0.0-0.1) 12/19/17 05:55 Absolute Nucleated RBC 0.0 /100WBC 12/19/17 05:55 Total Counted 100 12/18/17 04:10 Neutrophils % (Manual) 78 % (39-76) H 12/18/17 04:10 Band Neutrophils % 4 % (0-10) 12/18/17 04:10 Lymphocytes % (Manual) 12 % (13-43) L 12/18/17 04:10 Monocytes % (Manual) 4 % (4-9) 12/18/17 04:10 Eosinophils % (Manual) 2 % (0-6) 12/18/17 04:10 Plt Morphology Comment Normal (NORMAL) 12/18/17 04:10 RBC Morphology Normal (NORMAL) 12/18/17 04:10 Sodium 144 mmol/L (136-145) 12/19/17 05:55 Corrected Sodium 144 mmol/L (136-145) 12/19/17 05:55 Potassium 4.0 mmol/L (3.5-5.1) 12/19/17 05:55 Chloride 107 mmol/L (98-107) 12/19/17 05:55 Carbon Dioxide 32.8 mmol/L (21-32) H 12/19/17 05:55 BUN 21 mg/dL (7-18) H 12/19/17 05:55 Creatinine 0.98 mg/dL (0.55-1.02) 12/19/17 05:55 Est GFR (MDRD) Af Amer > 60 (>60) 12/19/17 05:55 Est GFR (MDRD) Non-Af 58 (>60) L 12/19/17 05:55 Glucose 119 mg/dL (65-99) H 12/19/17 05:55 Lactic Acid 1.5 mmol/L (0.4-2.0) 12/12/17 00:15 Calcium 8.1 mg/dL (8.5-10.1) L 12/19/17 05:55 Corrected Calcium 9.2 mg/dL (8.5-10.1) 12/19/17 05:55 Magnesium 1.6 mg/dL (1.7-2.9) L 12/13/17 05:09 Total Bilirubin 0.30 mg/dL (0.2-1.0) 12/19/17 05:55 AST 12 Units/L (15-37) L 12/19/17 05:55 ALT 13 Units/L (12-78) 12/19/17 05:55 Alkaline Phosphatase 52 Units/L (46-116) 12/19/17 05:55 Creatine Kinase 56 Units/L (26-192) 12/14/17 05:53 CK-MB (CK-2) < 1.0 ng/mL (0-4.0) 12/14/17 05:53 CK/CKMB % Calc 1.8 % (<4) 12/14/17 05:53 Troponin I 0.04 ng/mL (0-1.5) 12/14/17 05:53 Total Protein 5.6 g/dL (6.4-8.2) L 12/19/17 05:55 Albumin 2.6 g/dL (3.4-5.0) L 12/19/17 05:55 Globulin 3.0 g/dL (2.5-4.5) 12/19/17 05:55 Albumin/Globulin Ratio 0.9 Ratio (1.1-2.1) L 12/19/17 05:55 Specimen Type Catherized urine 12/13/17 11:20 Urine Color Brown (YELLOW) 12/13/17 11:20 Urine Appearance Hazy (CLEAR) 12/13/17 11:20 Urine pH 5.0 (5.0 - 8.0) 12/13/17 11:20 Ur Specific [place] 1.025 (1.000-1.030) 12/13/17 11:20 Urine Protein 2+ (NEGATIVE) 12/13/17 11:20 Urine Glucose (UA) Negative (NEGATIVE) 12/13/17 11:20 Urine Ketones Negative (NEGATIVE) 12/13/17 11:20 Urine Occult Blood 3+ (NEGATIVE) 12/13/17 11:20 Urine Nitrite Positive (NEGATIVE) 12/13/17 11:20 Urine Bilirubin 2+ (NEGATIVE) 12/13/17 11:20 Urine Urobilinogen 2+ (NORMAL) 12/13/17 11:20 Ur Leukocyte Esterase 2+ (NEGATIVE) 12/13/17 11:20 Urine RBC 5-10 /HPF (NONE SEEN) 12/13/17 11:20 Urine WBC 3-5 /HPF (NONE SEEN) 12/13/17 11:20 Ur Squamous Epith Cells Negative /HPF (NEGATIVE) 12/13/17 11:20 Amorphous Sediment 2+ /HPF (NEGATIVE) 12/13/17 11:20 Urine Bacteria 3+ /HPF (NEGATIVE) 12/13/17 11:20 Ur Culture Indicated? Yes/culture set up 12/13/17 11:20 Stool Description 20g,unformed,brown 12/18/17 14:00 Stl Occult Blood (IFOB) Negative (NEGATIVE) 12/18/17 14:00 - Plan (1) Urinary tract infection Status: Acute Qualifiers: Urinary tract infection type: acute cystitis Hematuria presence: without hematuria Qualified Code(s): N30.00 - Acute cystitis without hematuria Plan: INVANZ 500MG IV DAILY, IV FLUIDS, CONTINUE TO MONITOR (2) Altered mental status Status: Acute Qualifiers: Altered mental status type: transient alteration of awareness Qualified Code(s): R40.4 - Transient alteration of awareness Plan: TREAT UTI, CONTINUE TO MONITOR (3) SOB (shortness of breath) Status: Acute Plan: DUONEBS, SUPPLEMENTAL OXYGEN, MONITOR CHEST XRAY (4) Anemia Status: Acute Qualifiers: Anemia type: iron deficiency Iron deficiency anemia type: unspecified iron deficiency Qualified Code(s): D50.9 - Iron deficiency anemia, unspecified Plan: HEMOCYTE 1 CAPSULE PO DAILY, CONTINUE TO MONITOR (5) Hypoalbuminemia Status: Acute Plan: ALBUMIN 25% IV DAILY, CONTINUE TO MONITOR
[2017-12-19] MEDS: ROBITUSSIN DM PO SCH ×4 (08:54→21:05)
[2017-12-19] MEDS: HEMOCYTE-PLUS PO SCH (08:54)
[2017-12-19] MEDS: NYSTATIN POWDER TOP SCH ×2 (08:54→21:05)
[2017-12-19] MEDS: INVANZ INJ 1 GM VIAL 0.5 GM in NS 100 ML IV + SPIKE MINIBAG* 100 ML IV SCH (08:54)
[2017-12-19] MEDS: ZANTAC PO SCH (08:55)
[2017-12-19] MEDS: DUONEB 0.5 MG/3 MG NEB SCH ×4 (09:23→20:18)
[2017-12-19] MEDS: MUCOMYST 20% 200 MG/ML NEB SCH ×4 (09:23→20:18)
[2017-12-19] MEDS: TYLENOL 325 MG TAB PO PRN (18:27)
--- NOTE | 2017-12-19 18:47 | PCM.PROG ---
Progress Note - Progress Note for Day of Date of Exam: 12/19/17 - Subjective Subjective: WAS ADMITTED FOR A URINARY TRACT INFECTION, ALTERED MENTAL STATUS, AND SHORTNESS OF BREATH. OVER THE WEEKEND, SHE BEGAN WITH LEFT GROIN PAIN. A LOWER EXTREMITY ULTRASOUND WAS OBTAINED AND REVEALED: Findings most consistent with left groin abscess. AN ABDOMEN/PELVIS CT WAS OBTAINED AND REVEALED: Left inguinal and abdominal wall abscess, probably involving the abdominal wall musculature and fascia. Surgical consultation recommended. Vascular plaque, cardiomegaly, effusions, dependent atelectasis, diverticulosis and other findings as above. TODAY, SHE IS ALERT AND ORIENTED, LYING IN BED ON MORNING ROUNDS. SHE CONTINUES WITH COMPLAINTS OF SHORTNESS OF BREATH, MILD ABDOMINAL PAIN, AND GENERALIZED WEAKNESS TODAY. ON EXAMINATION, HEART IS REGULAR IN RATE AND RHYTHM. BILATERAL LUNGS ARE NOTED WITH DIMINISHED LUNG SOUNDS THROUGHOUT. ABDOMEN IS ROUND, SOFT, AND NOTED WITH MILD, SUPRAPUBIC TENDERNESS TO PALPATION. NORMAL BOWEL SOUNDS NOTED IN ALL QUADRANTS. THERE IS TRACE EDEMA NOTED TO BILATERAL LOWER EXTREMITIES. LEFT GROIN IS NOTED WITH SOFT TISSUE SWELLING AND REDNESS. HER VITALS THIS MORNING ARE 97.8-82-20-98%-144/57. LABS WERE OBTAINED. ABNORMAL LAB VALUES INCLUDE THE FOLLOWING: WBC 14.1, RBC 2.64, HGB 8.9, HCT 25.5, CARBON DIOXIDE 32.8, BUN 21, GLUCOSE 119, CALCIUM 8.1, AST 12, TOTAL PROTEIN 5.6, ALBUMIN 2.6. SHE IS CURRENTLY RECEIVING INVANZ 500MG IV DAILY WELL IV FLUIDS. TODAY, WE WILL CONSULT FOR POSSIBLE I&D. OTHERWISE, WE WILL CONTINUE WITH CURRENT PLAN OF CARE. WE WILL FOLLOW UP WITH AM LABS AND CONTINUE TO MONITOR PATIENT. - Past Medical Family Social History Past Med/Fam/Surg Hx: No changes since H&P Allergies: Allergies No Known Drug Allergies Allergy (Verified 11/08/17 15:48) - Review of Systems ROS: No change since H&P - Vital Signs and I&O's Vital Signs: Temperature 98.7 F Pulse Rate [Left] 88 Pulse Rate 96 Respiratory Rate 20 Blood Pressure [Left Arm] 135/61 Blood Pressure [Right Arm] 101/53 Blood Pressure 135/63 O2 Sat by Pulse Oximetry 94 Intake and Output: Intake & Output 12/17/17 12/18/17 12/19/1718 12:59 11:59 11:59 11:59 Intake Total 536 / 536 360 / 360 Output Total 225 / 225 200 / 200 Balance 311 / 311 160 / 160 - Physical Exam Oriented: Normal Eyes: Normal Ear: Normal Nose: Normal Throat: Normal Respiratory: Generalized, Diminished Cardiovascular: Normal. negative: S3, S4, Murmur : Normal Auscultation: Bowel Sounds: Normal Palpation: Normal Tenderness: Suprapubic, Mild. negative: Rebound, Guarding, Rigidity Skin: Normal, Red (LEFT GROIN ), Tender, Hot Musculoskeletal: Normal Psychiatric: Normal Mood Description: Calm Affect: Normal Speech Pattern: Clear, Appropriate - Laboratory and Diagnostics Result Diagrams: 12/19/17 05:55 12/19/17 05:55 Labs: 12/19/17 10:15 Groin Gram Stain - Final 12/12/17 00:15 Blood Blood Culture - Final 12/12/17 00:22 Blood Blood Culture - Final 12/13/17 11:20 Urine,Catheterized Urine Culture - Final Laboratory WBC 14.1 X10^3/uL (3.6-10.0) H 12/19/17 05:55 RBC 2.64 X10^6/uL (3.5-5.4) L 12/19/17 05:55 Hgb 8.9 g/dL (12.0-16.0) L 12/19/17 05:55 Hct 25.5 % (36.0-47.0) L 12/19/17 05:55 MCV 96.7 fL (80.0-100.0) 12/19/17 05:55 MCH 33.9 pg (27.0-34.0) 12/19/17 05:55 MCHC 35.1 g/dL (33.0-35.0) H 12/19/17 05:55 RDW 12.3 % (11.6-16.5) 12/19/17 05:55 Plt Count 311 X10^3/uL (150.0-450.0) 12/19/17 05:55 Plt Count Comment Adequate (ADEQUATE) 12/18/17 04:10 MPV 7.8 fL (7.4-11.0) 12/19/17 05:55 Neut % (Auto) 79.7 % (42.0-75.0) H 12/19/17 05:55 Lymph % (Auto) 12.7 % (21.0-51.0) L 12/19/17 05:55 [place] % (Auto) 4.7 % (0.0-13.0) 12/19/17 05:55 Eos % (Auto) 2.3 % (0.9-2.9) 12/19/17 05:55 Baso % (Auto) 0.6 % (0.2-1.0) 12/19/17 05:55 Neut # (Auto) 11.2 x10^3/uL (2.2-4.8) H 12/19/17 05:55 Lymph # (Auto) 1.8 X10^3/uL (1.3-2.9) 12/19/17 05:55 [place] # (Auto) 0.7 x10^3/uL (0.3-0.8) 12/19/17 05:55 Eos # (Auto) 0.3 x10^3/uL (0.0-0.2) H 12/19/17 05:55 Baso # (Auto) 0.1 X10^3/uL (0.0-0.1) 12/19/17 05:55 Absolute Nucleated RBC 0.0 /100WBC 12/19/17 05:55 Total Counted 100 12/18/17 04:10 Neutrophils % (Manual) 78 % (39-76) H 12/18/17 04:10 Band Neutrophils % 4 % (0-10) 12/18/17 04:10 Lymphocytes % (Manual) 12 % (13-43) L 12/18/17 04:10 Monocytes % (Manual) 4 % (4-9) 12/18/17 04:10 Eosinophils % (Manual) 2 % (0-6) 12/18/17 04:10 Plt Morphology Comment Normal (NORMAL) 12/18/17 04:10 RBC Morphology Normal (NORMAL) 12/18/17 04:10 Sodium 144 mmol/L (136-145) 12/19/17 05:55 Corrected Sodium 144 mmol/L (136-145) 12/19/17 05:55 Potassium 4.0 mmol/L (3.5-5.1) 12/19/17 05:55 Chloride 107 mmol/L (98-107) 12/19/17 05:55 Carbon Dioxide 32.8 mmol/L (21-32) H 12/19/17 05:55 BUN 21 mg/dL (7-18) H 12/19/17 05:55 Creatinine 0.98 mg/dL (0.55-1.02) 12/19/17 05:55 Est GFR (MDRD) Af Amer > 60 (>60) 12/19/17 05:55 Est GFR (MDRD) Non-Af 58 (>60) L 12/19/17 05:55 Glucose 119 mg/dL (65-99) H 12/19/17 05:55 Lactic Acid 1.5 mmol/L (0.4-2.0) 12/12/17 00:15 Calcium 8.1 mg/dL (8.5-10.1) L 12/19/17 05:55 Corrected Calcium 9.2 mg/dL (8.5-10.1) 12/19/17 05:55 Magnesium 1.6 mg/dL (1.7-2.9) L 12/13/17 05:09 Total Bilirubin 0.30 mg/dL (0.2-1.0) 12/19/17 05:55 AST 12 Units/L (15-37) L 12/19/17 05:55 ALT 13 Units/L (12-78) 12/19/17 05:55 Alkaline Phosphatase 52 Units/L (46-116) 12/19/17 05:55 Creatine Kinase 56 Units/L (26-192) 12/14/17 05:53 CK-MB (CK-2) < 1.0 ng/mL (0-4.0) 12/14/17 05:53 CK/CKMB % Calc 1.8 % (<4) 12/14/17 05:53 Troponin I 0.04 ng/mL (0-1.5) 12/14/17 05:53 Total Protein 5.6 g/dL (6.4-8.2) L 12/19/17 05:55 Albumin 2.6 g/dL (3.4-5.0) L 12/19/17 05:55 Globulin 3.0 g/dL (2.5-4.5) 12/19/17 05:55 Albumin/Globulin Ratio 0.9 Ratio (1.1-2.1) L 12/19/17 05:55 Specimen Type Catherized urine 12/13/17 11:20 Urine Color Brown (YELLOW) 12/13/17 11:20 Urine Appearance Hazy (CLEAR) 12/13/17 11:20 Urine pH 5.0 (5.0 - 8.0) 12/13/17 11:20 Ur Specific [place] 1.025 (1.000-1.030) 12/13/17 11:20 Urine Protein 2+ (NEGATIVE) 12/13/17 11:20 Urine Glucose (UA) Negative (NEGATIVE) 12/13/17 11:20 Urine Ketones Negative (NEGATIVE) 12/13/17 11:20 Urine Occult Blood 3+ (NEGATIVE) 12/13/17 11:20 Urine Nitrite Positive (NEGATIVE) 12/13/17 11:20 Urine Bilirubin 2+ (NEGATIVE) 12/13/17 11:20 Urine Urobilinogen 2+ (NORMAL) 12/13/17 11:20 Ur Leukocyte Esterase 2+ (NEGATIVE) 12/13/17 11:20 Urine RBC 5-10 /HPF (NONE SEEN) 12/13/17 11:20 Urine WBC 3-5 /HPF (NONE SEEN) 12/13/17 11:20 Ur Squamous Epith Cells Negative /HPF (NEGATIVE) 12/13/17 11:20 Amorphous Sediment 2+ /HPF (NEGATIVE) 12/13/17 11:20 Urine Bacteria 3+ /HPF (NEGATIVE) 12/13/17 11:20 Ur Culture Indicated? Yes/culture set up 12/13/17 11:20 Stool Description 20g,unformed,brown 12/18/17 14:00 Stl Occult Blood (IFOB) Negative (NEGATIVE) 12/18/17 14:00 - Plan (1) Urinary tract infection Status: Acute Qualifiers: Urinary tract infection type: acute cystitis Hematuria presence: without hematuria Qualified Code(s): N30.00 - Acute cystitis without hematuria Plan: INVANZ 500MG IV DAILY, IV FLUIDS, CONTINUE TO MONITOR (2) Abscess of groin, left Status: Acute Plan: CONSULT GENERAL SURGERY FOR POSSIBLE I&D, CONTINUE IV ANTIBIOTICS (3) Altered mental status Status: Acute Qualifiers: Altered mental status type: transient alteration of awareness Qualified Code(s): R40.4 - Transient alteration of awareness Plan: TREAT UTI, CONTINUE TO MONITOR (4) SOB (shortness of breath) Status: Acute Plan: DUONEBS, SUPPLEMENTAL OXYGEN, MONITOR CHEST XRAY (5) Anemia Status: Acute Qualifiers: Anemia type: iron deficiency Iron deficiency anemia type: unspecified iron deficiency Qualified Code(s): D50.9 - Iron deficiency anemia, unspecified Plan: HEMOCYTE 1 CAPSULE PO DAILY, CONTINUE TO MONITOR (6) Hypoalbuminemia Status: Acute Plan: ALBUMIN 25% IV DAILY, CONTINUE TO MONITOR
[2017-12-20 05:20] LABS: BASOPHILS # (AUTO) 0.1 X10^3/uL (0.0-0.1); BASOPHILS % (AUTO) 0.4 % (0.2-1.0); EOSINOPHILS # (AUTO) 0.3 x10^3/uL (0.0-0.2); EOSINOPHILS % (AUTO) 2.1 % (0.9-2.9); HEMATOCRIT 24.6 % (36.0-47.0); HEMOGLOBIN 8.4 g/dL (12.0-16.0); LYMPHOCYTES # (AUTO) 1.9 X10^3/uL (1.3-2.9); LYMPHOCYTES % (AUTO) 14.1 % (21.0-51.0); MEAN CORPUSCULAR HEMOGLOBIN 33.2 pg (27.0-34.0); MEAN CORPUSCULAR HGB CONC 34.2 g/dL (33.0-35.0); MEAN CORPUSCULAR VOLUME 97.1 fL (80.0-100.0); MEAN PLATELET VOLUME 7.9 fL (7.4-11.0); MONOCYTES # (AUTO) 0.6 x10^3/uL (0.3-0.8); MONOCYTES % (AUTO) 4.3 % (0.0-13.0); NEUTROPHILS # (AUTO) 10.7 x10^3/uL (2.2-4.8); NEUTROPHILS % (AUTO) 79.1 % (42.0-75.0); PLATELET COUNT 321 X10^3/uL (150.0-450.0); RED BLOOD COUNT 2.53 X10^6/uL (3.5-5.4); RED CELL DISTRIBUTION WIDTH 12.7 % (11.6-16.5); WHITE BLOOD COUNT 13.5 X10^3/uL (3.6-10.0)
[2017-12-20 05:33] LABS: ALANINE AMINOTRANSFERASE 13 Units/L (12-78); ALBUMIN 2.5 g/dL (3.4-5.0); ALKALINE PHOSPHATASE 52 Units/L (46-116); ASPARTATE AMINO TRANSFERASE 11 Units/L (15-37); BLOOD UREA NITROGEN 22 mg/dL (7-18); CHLORIDE 107 mmol/L (98-107); COR CA(FOR HYPOALB) 9.2 mg/dL (8.5-10.1); COR NA(FOR HYPERGLY) 144 mmol/L (136-145); CREATININE 0.99 mg/dL (0.55-1.02); SODIUM 143 mmol/L (136-145); TOTAL PROTEIN 5.4 g/dL (6.4-8.2); eGFR NON BLACK RACES 57 (>60)
--- NOTE | 2017-12-20 07:49 | DR.PROGNOT ---
Hospital Progress Notes - Progress Note for Day of: Progress Note Date: 12/20/17 - Past Medical Family Social History Past Med/Fam/Surg Hx: No changes since H&P Allergies: Allergies No Known Drug Allergies Allergy (Verified 11/08/17 15:48) - Review Of Systems ROS: No change since H&P - Vital Signs Vital Signs: Temperature 98.9 F Pulse Rate [Left] 78 Pulse Rate 93 Respiratory Rate 20 Blood Pressure [Left Arm] 126/70 Blood Pressure [Right Arm] 101/53 Blood Pressure 135/63 O2 Sat by Pulse Oximetry 95 - Physical Exam Oriented: Normal Eyes: Normal Ear: Normal Nose: Normal Throat: Normal Respiratory: Generalized, Diminished Cardiovascular: Normal. negative: S3, S4, Murmur : Normal GI:Auscultation: Normal GI:Palpation: Normal GI: Tenderness: Suprapubic, Mild. negative: Rebound, Guarding, Rigidity Skin: Normal, Red (LEFT GROIN with moderate tenderness and less edeme and erythema ) Musculoskeletal: Normal Psychiatric: Normal Mood Description: Calm Affect: Normal Speech Pattern: Clear, Appropriate - Laboratory and Diagnostics Result Diagrams: 12/20/17 04:27 12/20/17 04:27 Labs: 12/19/17 10:15 Groin Gram Stain - Final 12/12/17 00:15 Blood Blood Culture - Final 12/12/17 00:22 Blood Blood Culture - Final 12/13/17 11:20 Urine,Catheterized Urine Culture - Final Laboratory WBC 13.5 X10^3/uL (3.6-10.0) H 12/20/17 04:27 RBC 2.53 X10^6/uL (3.5-5.4) L 12/20/17 04:27 Hgb 8.4 g/dL (12.0-16.0) L 12/20/17 04:27 Hct 24.6 % (36.0-47.0) L 12/20/17 04:27 MCV 97.1 fL (80.0-100.0) 12/20/17 04:27 MCH 33.2 pg (27.0-34.0) 12/20/17 04:27 MCHC 34.2 g/dL (33.0-35.0) 12/20/17 04:27 RDW 12.7 % (11.6-16.5) 12/20/17 04:27 Plt Count 321 X10^3/uL (150.0-450.0) 12/20/17 04:27 Plt Count Comment Adequate (ADEQUATE) 12/18/17 04:10 MPV 7.9 fL (7.4-11.0) 12/20/17 04:27 Neut % (Auto) 79.1 % (42.0-75.0) H 12/20/17 04:27 Lymph % (Auto) 14.1 % (21.0-51.0) L 12/20/17 04:27 [place] % (Auto) 4.3 % (0.0-13.0) 12/20/17 04:27 Eos % (Auto) 2.1 % (0.9-2.9) 12/20/17 04:27 Baso % (Auto) 0.4 % (0.2-1.0) 12/20/17 04:27 Neut # (Auto) 10.7 x10^3/uL (2.2-4.8) H 12/20/17 04:27 Lymph # (Auto) 1.9 X10^3/uL (1.3-2.9) 12/20/17 04:27 [place] # (Auto) 0.6 x10^3/uL (0.3-0.8) 12/20/17 04:27 Eos # (Auto) 0.3 x10^3/uL (0.0-0.2) H 12/20/17 04:27 Baso # (Auto) 0.1 X10^3/uL (0.0-0.1) 12/20/17 04:27 Absolute Nucleated RBC 0.0 /100WBC 12/20/17 04:27 Total Counted 100 12/18/17 04:10 Neutrophils % (Manual) 78 % (39-76) H 12/18/17 04:10 Band Neutrophils % 4 % (0-10) 12/18/17 04:10 Lymphocytes % (Manual) 12 % (13-43) L 12/18/17 04:10 Monocytes % (Manual) 4 % (4-9) 12/18/17 04:10 Eosinophils % (Manual) 2 % (0-6) 12/18/17 04:10 Plt Morphology Comment Normal (NORMAL) 12/18/17 04:10 RBC Morphology Normal (NORMAL) 12/18/17 04:10 Sodium 143 mmol/L (136-145) 12/20/17 04:27 Corrected Sodium 144 mmol/L (136-145) 12/20/17 04:27 Potassium 3.9 mmol/L (3.5-5.1) 12/20/17 04:27 Chloride 107 mmol/L (98-107) 12/20/17 04:27 Carbon Dioxide 32.0 mmol/L (21-32) 12/20/17 04:27 BUN 22 mg/dL (7-18) H 12/20/17 04:27 Creatinine 0.99 mg/dL (0.55-1.02) 12/20/17 04:27 Est GFR (MDRD) Af Amer > 60 (>60) 12/20/17 04:27 Est GFR (MDRD) Non-Af 57 (>60) L 12/20/17 04:27 Glucose 123 mg/dL (65-99) H 12/20/17 04:27 Lactic Acid 1.5 mmol/L (0.4-2.0) 12/12/17 00:15 Calcium 8.0 mg/dL (8.5-10.1) L 12/20/17 04:27 Corrected Calcium 9.2 mg/dL (8.5-10.1) 12/20/17 04:27 Magnesium 1.6 mg/dL (1.7-2.9) L 12/13/17 05:09 Total Bilirubin 0.30 mg/dL (0.2-1.0) 12/20/17 04:27 AST 11 Units/L (15-37) L 12/20/17 04:27 ALT 13 Units/L (12-78) 12/20/17 04:27 Alkaline Phosphatase 52 Units/L (46-116) 12/20/17 04:27 Creatine Kinase 56 Units/L (26-192) 12/14/17 05:53 CK-MB (CK-2) < 1.0 ng/mL (0-4.0) 12/14/17 05:53 CK/CKMB % Calc 1.8 % (<4) 12/14/17 05:53 Troponin I 0.04 ng/mL (0-1.5) 12/14/17 05:53 Total Protein 5.4 g/dL (6.4-8.2) L 12/20/17 04:27 Albumin 2.5 g/dL (3.4-5.0) L 12/20/17 04:27 Globulin 2.9 g/dL (2.5-4.5) 12/20/17 04:27 Albumin/Globulin Ratio 0.9 Ratio (1.1-2.1) L 12/20/17 04:27 Specimen Type Catherized urine 12/13/17 11:20 Urine Color Brown (YELLOW) 12/13/17 11:20 Urine Appearance Hazy (CLEAR) 12/13/17 11:20 Urine pH 5.0 (5.0 - 8.0) 12/13/17 11:20 Ur Specific [place] 1.025 (1.000-1.030) 12/13/17 11:20 Urine Protein 2+ (NEGATIVE) 12/13/17 11:20 Urine Glucose (UA) Negative (NEGATIVE) 12/13/17 11:20 Urine Ketones Negative (NEGATIVE) 12/13/17 11:20 Urine Occult Blood 3+ (NEGATIVE) 12/13/17 11:20 Urine Nitrite Positive (NEGATIVE) 12/13/17 11:20 Urine Bilirubin 2+ (NEGATIVE) 12/13/17 11:20 Urine Urobilinogen 2+ (NORMAL) 12/13/17 11:20 Ur Leukocyte Esterase 2+ (NEGATIVE) 12/13/17 11:20 Urine RBC 5-10 /HPF (NONE SEEN) 12/13/17 11:20 Urine WBC 3-5 /HPF (NONE SEEN) 12/13/17 11:20 Ur Squamous Epith Cells Negative /HPF (NEGATIVE) 12/13/17 11:20 Amorphous Sediment 2+ /HPF (NEGATIVE) 12/13/17 11:20 Urine Bacteria 3+ /HPF (NEGATIVE) 12/13/17 11:20 Ur Culture Indicated? Yes/culture set up 12/13/17 11:20 Stool Description 20g,unformed,brown 12/18/17 14:00 Stl Occult Blood (IFOB) Negative (NEGATIVE) 12/18/17 14:00 - Assessment and Plan 1: Lt groin abscess , s/p needle aspiration of large amount of purulent material . awaiting C&S - Problem Patient Problems: Patient Problems Urinary tract infection (Acute) N39.0 SOB (shortness of breath) (Acute) R06.02 Altered mental status (Acute) R41.82 Anemia (Acute) D64.9 Hypoalbuminemia (Acute) E88.09 Abscess of groin, left (Acute) L02.214
[2017-12-20] MEDS: MUCOMYST 20% 200 MG/ML NEB SCH ×4 (08:15→20:12)
[2017-12-20] MEDS: DUONEB 0.5 MG/3 MG NEB SCH ×4 (08:15→20:12)
[2017-12-20] MEDS: INVANZ INJ 1 GM VIAL 0.5 GM in NS 100 ML IV + SPIKE MINIBAG* 100 ML IV SCH (09:01)
[2017-12-20] MEDS: HEMOCYTE-PLUS PO SCH (09:01)
[2017-12-20] MEDS: ZANTAC PO SCH (09:01)
[2017-12-20] MEDS: ROBITUSSIN DM PO SCH ×4 (09:01→21:41)
[2017-12-20] MEDS: NYSTATIN POWDER TOP SCH ×2 (09:01→21:42)
[2017-12-20] MEDS: LASIX IVP SCH ×3 (15:33→21:42)
[2017-12-21 05:13] LABS: BASOPHILS # (AUTO) 0.1 X10^3/uL (0.0-0.1); BASOPHILS % (AUTO) 0.6 % (0.2-1.0); EOSINOPHILS # (AUTO) 0.3 x10^3/uL (0.0-0.2); EOSINOPHILS % (AUTO) 2.3 % (0.9-2.9); HEMATOCRIT 23.5 % (36.0-47.0); HEMOGLOBIN 8.2 g/dL (12.0-16.0); LYMPHOCYTES # (AUTO) 2.2 X10^3/uL (1.3-2.9); LYMPHOCYTES % (AUTO) 16.6 % (21.0-51.0); MEAN CORPUSCULAR HEMOGLOBIN 33.7 pg (27.0-34.0); MEAN CORPUSCULAR HGB CONC 34.9 g/dL (33.0-35.0); MEAN CORPUSCULAR VOLUME 96.6 fL (80.0-100.0); MEAN PLATELET VOLUME 7.8 fL (7.4-11.0); MONOCYTES # (AUTO) 0.5 x10^3/uL (0.3-0.8); MONOCYTES % (AUTO) 3.8 % (0.0-13.0); NEUTROPHILS # (AUTO) 10.3 x10^3/uL (2.2-4.8); NEUTROPHILS % (AUTO) 76.7 % (42.0-75.0); PLATELET COUNT 303 X10^3/uL (150.0-450.0); RED BLOOD COUNT 2.43 X10^6/uL (3.5-5.4); RED CELL DISTRIBUTION WIDTH 12.5 % (11.6-16.5); WHITE BLOOD COUNT 13.4 X10^3/uL (3.6-10.0)
[2017-12-21 05:23] LABS: ALANINE AMINOTRANSFERASE 12 Units/L (12-78); ALBUMIN 2.4 g/dL (3.4-5.0); ALKALINE PHOSPHATASE 49 Units/L (46-116); ASPARTATE AMINO TRANSFERASE 12 Units/L (15-37); BLOOD UREA NITROGEN 21 mg/dL (7-18); CALCIUM 7.8 mg/dL (8.5-10.1); CARBON DIOXIDE 31.6 mmol/L (21-32); CHLORIDE 107 mmol/L (98-107); COR CA(FOR HYPOALB) 9.1 mg/dL (8.5-10.1); COR NA(FOR HYPERGLY) 143 mmol/L (136-145); CREATININE 1.04 mg/dL (0.55-1.02); SODIUM 143 mmol/L (136-145); TOTAL PROTEIN 5.4 g/dL (6.4-8.2); eGFR NON BLACK RACES 54 (>60)
--- NOTE | 2017-12-21 06:28 | RAD ---
HISTORY: Shortness of breath, prior history of CHF Study: Single-view chest Comparison: 12/18/2017 Findings: Trachea is midline. There is cardiomegaly with aortic uncoiling. There is improved aeration with reduction in interstitial markings bilaterally and improved aeration noted in the left lung base. Osseous structures are intact. IMPRESSION: Cardiomegaly with aortic uncoiling. Slight interval improvement in aeration with reduction in interstitial markings in improved aeration in the left lung base. Reported By:
[2017-12-21] MEDS: INVANZ INJ 1 GM VIAL 0.5 GM in NS 100 ML IV + SPIKE MINIBAG* 100 ML IV SCH (08:39)
[2017-12-21] MEDS: MUCOMYST 20% 200 MG/ML NEB SCH (08:40)
[2017-12-21] MEDS: DUONEB 0.5 MG/3 MG NEB SCH (08:40)
--- NOTE | 2017-12-21 08:40 | PCM.PROG ---
Progress Note - Progress Note for Day of Date of Exam: 12/20/17 - Subjective Subjective: WAS ADMITTED FOR A URINARY TRACT INFECTION, ALTERED MENTAL STATUS, SHORTNESS OF BREATH, AND AN ABSCESS TO THE LEFT GROIN. PERFORMED NEEDLE ASPIRATION YESTERDAY AND SENT A CULTURE TO THE LAB. TODAY, SHE IS ALERT AND ORIENTED, LYING IN BED ON MORNING ROUNDS. SHE CONTINUES WITH COMPLAINTS OF SHORTNESS OF BREATH AND GENERALIZED WEAKNESS TODAY. SHE ALSO REPORTS SWELLING TO BILATERAL LOWER EXTREMITIES. ON EXAMINATION, HEART IS REGULAR IN RATE AND RHYTHM. BILATERAL LUNGS ARE NOTED WITH DIMINISHED LUNG SOUNDS THROUGHOUT. ABDOMEN IS ROUND, SOFT, AND NOTED WITH MILD, SUPRAPUBIC TENDERNESS TO PALPATION. NORMAL BOWEL SOUNDS NOTED IN ALL QUADRANTS. THERE IS 1+ PITTING EDEMA NOTED TO BILATERAL LOWER EXTREMITIES. LEFT GROIN IS NOTED WITH SOFT TISSUE SWELLING AND REDNESS. HER VITALS THIS MORNING ARE 98.9-78-20-92%RA-151/65. LABS WERE OBTAINED. ABNORMAL LAB VALUES INCLUDE THE FOLLOWING: WBC 13.5, RBC 2.53, HGB 8.4, HCT 24.6, BUN 22, GLUCOSE 123, CALCIUM 8.0, AST 11, TOTAL PROTEIN 5.4, ALBUMIN 2.5. SHE IS CURRENTLY RECEIVING INVANZ 500MG IV DAILY AND NEB TREATMENTS. TODAY, WE WILL ADMINISTER LASIX 20MG IV BID. OTHERWISE, WE WILL CONTINUE WITH CURRENT PLAN OF CARE. WE WILL FOLLOW UP WITH AM LABS AND CONTINUE TO MONITOR PATIENT. - Past Medical Family Social History Past Med/Fam/Surg Hx: No changes since H&P Allergies: Allergies No Known Drug Allergies Allergy (Verified 11/08/17 15:48) - Review of Systems ROS: No change since H&P - Vital Signs and I&O's Vital Signs: Temperature 98.8 F Pulse Rate [Left] 89 Pulse Rate 80 Respiratory Rate 20 Blood Pressure [Left Arm] 152/69 Blood Pressure [Right Arm] 101/53 Blood Pressure 135/63 O2 Sat by Pulse Oximetry 97 Intake and Output: Intake & Output 12/18/17 12/19/17 12/20/17 12/21/17 11:59 11:59 11:59 11:59 Intake Total 536 / 536 500 / 500 630 / 630 Output Total 225 / 225 350 / 350 0 / 0 Balance 311 / 311 150 / 150 630 / 630 - Physical Exam Oriented: Normal Eyes: Normal Ear: Normal Nose: Normal Throat: Normal Respiratory: Generalized, Diminished Cardiovascular: Normal. negative: S3, S4, Murmur : Normal Auscultation: Bowel Sounds: Normal Palpation: Normal Tenderness: Suprapubic, Mild. negative: Rebound, Guarding, Rigidity Skin: Normal, Red (LEFT GROIN with moderate tenderness and less edeme and erythema ) Musculoskeletal: Normal Psychiatric: Normal Mood Description: Calm Affect: Normal Speech Pattern: Clear, Appropriate - Laboratory and Diagnostics Result Diagrams: 12/21/17 04:20 12/21/17 04:20 Labs: 12/19/17 10:15 Groin Gram Stain - Final 12/19/17 10:15 Groin Wound Culture - Preliminary 12/12/17 00:15 Blood Blood Culture - Final 12/12/17 00:22 Blood Blood Culture - Final 12/13/17 11:20 Urine,Catheterized Urine Culture - Final Laboratory WBC 13.4 X10^3/uL (3.6-10.0) H 12/21/17 04:20 RBC 2.43 X10^6/uL (3.5-5.4) L 12/21/17 04:20 Hgb 8.2 g/dL (12.0-16.0) L 12/21/17 04:20 Hct 23.5 % (36.0-47.0) L 12/21/17 04:20 MCV 96.6 fL (80.0-100.0) 12/21/17 04:20 MCH 33.7 pg (27.0-34.0) 12/21/17 04:20 MCHC 34.9 g/dL (33.0-35.0) 12/21/17 04:20 RDW 12.5 % (11.6-16.5) 12/21/17 04:20 Plt Count 303 X10^3/uL (150.0-450.0) 12/21/17 04:20 Plt Count Comment Adequate (ADEQUATE) 12/18/17 04:10 MPV 7.8 fL (7.4-11.0) 12/21/17 04:20 Neut % (Auto) 76.7 % (42.0-75.0) H 12/21/17 04:20 Lymph % (Auto) 16.6 % (21.0-51.0) L 12/21/17 04:20 Delta % (Auto) 3.8 % (0.0-13.0) 12/21/17 04:20 Eos % (Auto) 2.3 % (0.9-2.9) 12/21/17 04:20 Baso % (Auto) 0.6 % (0.2-1.0) 12/21/17 04:20 Neut # (Auto) 10.3 x10^3/uL (2.2-4.8) H 12/21/17 04:20 Lymph # (Auto) 2.2 X10^3/uL (1.3-2.9) 12/21/17 04:20 Delta # (Auto) 0.5 x10^3/uL (0.3-0.8) 12/21/17 04:20 Eos # (Auto) 0.3 x10^3/uL (0.0-0.2) H 12/21/17 04:20 Baso # (Auto) 0.1 X10^3/uL (0.0-0.1) 12/21/17 04:20 Absolute Nucleated RBC 0.0 /100WBC 12/21/17 04:20 Total Counted 100 12/18/17 04:10 Neutrophils % (Manual) 78 % (39-76) H 12/18/17 04:10 Band Neutrophils % 4 % (0-10) 12/18/17 04:10 Lymphocytes % (Manual) 12 % (13-43) L 12/18/17 04:10 Monocytes % (Manual) 4 % (4-9) 12/18/17 04:10 Eosinophils % (Manual) 2 % (0-6) 12/18/17 04:10 Plt Morphology Comment Normal (NORMAL) 12/18/17 04:10 RBC Morphology Normal (NORMAL) 12/18/17 04:10 Sodium 143 mmol/L (136-145) 12/21/17 04:20 Corrected Sodium 143 mmol/L (136-145) 12/21/17 04:20 Potassium 3.8 mmol/L (3.5-5.1) 12/21/17 04:20 Chloride 107 mmol/L (98-107) 12/21/17 04:20 Carbon Dioxide 31.6 mmol/L (21-32) 12/21/17 04:20 BUN 21 mg/dL (7-18) H 12/21/17 04:20 Creatinine 1.04 mg/dL (0.55-1.02) H 12/21/17 04:20 Est GFR (MDRD) Af Amer > 60 (>60) 12/21/17 04:20 Est GFR (MDRD) Non-Af 54 (>60) L 12/21/17 04:20 Glucose 111 mg/dL (65-99) H 12/21/17 04:20 Lactic Acid 1.5 mmol/L (0.4-2.0) 12/12/17 00:15 Calcium 7.8 mg/dL (8.5-10.1) L 12/21/17 04:20 Corrected Calcium 9.1 mg/dL (8.5-10.1) 12/21/17 04:20 Magnesium 1.6 mg/dL (1.7-2.9) L 12/13/17 05:09 Total Bilirubin 0.30 mg/dL (0.2-1.0) 12/21/17 04:20 AST 12 Units/L (15-37) L 12/21/17 04:20 ALT 12 Units/L (12-78) 12/21/17 04:20 Alkaline Phosphatase 49 Units/L (46-116) 12/21/17 04:20 Creatine Kinase 56 Units/L (26-192) 12/14/17 05:53 CK-MB (CK-2) < 1.0 ng/mL (0-4.0) 12/14/17 05:53 CK/CKMB % Calc 1.8 % (<4) 12/14/17 05:53 Troponin I 0.04 ng/mL (0-1.5) 12/14/17 05:53 Total Protein 5.4 g/dL (6.4-8.2) L 12/21/17 04:20 Albumin 2.4 g/dL (3.4-5.0) L 12/21/17 04:20 Globulin 3.0 g/dL (2.5-4.5) 12/21/17 04:20 Albumin/Globulin Ratio 0.8 Ratio (1.1-2.1) L 12/21/17 04:20 Specimen Type Catherized urine 12/13/17 11:20 Urine Color Brown (YELLOW) 12/13/17 11:20 Urine Appearance Hazy (CLEAR) 12/13/17 11:20 Urine pH 5.0 (5.0 - 8.0) 12/13/17 11:20 Ur Specific [place] 1.025 (1.000-1.030) 12/13/17 11:20 Urine Protein 2+ (NEGATIVE) 12/13/17 11:20 Urine Glucose (UA) Negative (NEGATIVE) 12/13/17 11:20 Urine Ketones Negative (NEGATIVE) 12/13/17 11:20 Urine Occult Blood 3+ (NEGATIVE) 12/13/17 11:20 Urine Nitrite Positive (NEGATIVE) 12/13/17 11:20 Urine Bilirubin 2+ (NEGATIVE) 12/13/17 11:20 Urine Urobilinogen 2+ (NORMAL) 12/13/17 11:20 Ur Leukocyte Esterase 2+ (NEGATIVE) 12/13/17 11:20 Urine RBC 5-10 /HPF (NONE SEEN) 12/13/17 11:20 Urine WBC 3-5 /HPF (NONE SEEN) 12/13/17 11:20 Ur Squamous Epith Cells Negative /HPF (NEGATIVE) 12/13/17 11:20 Amorphous Sediment 2+ /HPF (NEGATIVE) 12/13/17 11:20 Urine Bacteria 3+ /HPF (NEGATIVE) 12/13/17 11:20 Ur Culture Indicated? Yes/culture set up 12/13/17 11:20 Stool Description 20g,unformed,brown 12/18/17 14:00 Stl Occult Blood (IFOB) Negative (NEGATIVE) 12/18/17 14:00 - Plan (1) Urinary tract infection Status: Acute Qualifiers: Urinary tract infection type: acute cystitis Hematuria presence: without hematuria Qualified Code(s): N30.00 - Acute cystitis without hematuria Plan: INVANZ 500MG IV DAILY, IV FLUIDS, CONTINUE TO MONITOR (2) Abscess of groin, left Status: Acute Plan: CONSULT GENERAL SURGERY FOR POSSIBLE I&D, CONTINUE IV ANTIBIOTICS (3) Altered mental status Status: Acute Qualifiers: Altered mental status type: transient alteration of awareness Qualified Code(s): R40.4 - Transient alteration of awareness Plan: TREAT UTI, CONTINUE TO MONITOR (4) SOB (shortness of breath) Status: Acute Plan: LASIX 20MG IV BID, DUONEBS, SUPPLEMENTAL OXYGEN, MONITOR CHEST XRAY (5) Anemia Status: Acute Qualifiers: Anemia type: iron deficiency Iron deficiency anemia type: unspecified iron deficiency Qualified Code(s): D50.9 - Iron deficiency anemia, unspecified Plan: HEMOCYTE 1 CAPSULE PO DAILY, CONTINUE TO MONITOR (6) Hypoalbuminemia Status: Acute Plan: ALBUMIN 25% IV DAILY, CONTINUE TO MONITOR
[2017-12-21] MEDS: ROBITUSSIN DM PO SCH (08:42)
[2017-12-21] MEDS: ZANTAC PO SCH (08:42)
[2017-12-21] MEDS: HEMOCYTE-PLUS PO SCH (08:42)
[2017-12-21] MEDS: LASIX IVP SCH (08:43)
[2017-12-21] MEDS: NYSTATIN POWDER TOP SCH (08:43)
[2017-12-21 12:36] VITALS: BP 153/64
--- NOTE | 2018-01-24 23:01 | DR.CARTERD ---
- Discharge Summary for: Discharge Summary for Date of:: 12/21/17 - Admission Date Date of Admission: 12/13/17 - Admission Diagnoses Admission Diagnosis: (1) Urinary tract infection (2) Altered mental status (3) SOB (shortness of breath) - Discharge Date Discharge Date: 12/21/17 - Discharge Diagnoses Discharge Diagnosis: (1) Urinary tract infection (2) Abscess of groin, left (3) Altered mental status (4) SOB (shortness of breath) (5) Anemia (6) Hypoalbuminemia - Hospital Course Hospital Course: DAY ONE, IS A 82 YEAR OLD PATIENT OF OURS. SHE PRESENTED TO THE EMERGENCY ROOM WITH FAMILY REPORTING ALTERED MENTAL STATUS AND LABORED BREATHING. SYMPTOMS REPORTEDLY STARTED FIVE DAYS AGO AND HAVE INCREASINGLY WORSENED. FAMILY REPORTED THAT PATIENT WAS RECENTLY DIAGNOSED WITH A URINARY TRACT INFECTION. ON ARRIVAL, PATIENT WAS DISORIENTED AND CONFUSED. VITALS WERE 98.4-113-22-+98%-135/63. LABS WERE OBTAINED. ABNORMAL LAB VALUES INCLUDED THE FOLLOWING: WBC 23.8, RBC 3.24, HGB 10.7, HCT 32.0, BUN 28, CREATININE 1.38, GLUCOSE 166, AST 12, CREATINE KINASE 24, ALBUMIN 3.1. URINALYSIS REVEALED: WBC TNTC, RBC NONE SEEN, LEUKOCYTES 3+, BACTERIA TRACE, PROTEIN 2+. BLOOD CULTURES PENDING. EKG REVEALED: SINUS TACHYCARDIA WITH HR 104. A CHEST XRAY WAS OBTAINED AND REVEALED: STABLE CARDIOMEGALY WITHOUT ACUTE AIRSPACE DISEASE OR CHF. BRAIN CT REVEALED: NO ACUTE INTRACRANIAL HEMORRHAGE, MODERATE LEFT SPHENOID SINUS MUCOSAL DISEASE. SHE WAS ADMITTED FOR FURTHER EVALUATION AND TREATMENT OF AMS, UTI, AND SHORTNESS OF BREATH. SHE WAS STARTED ON IV ANTIBIOTICS, RESPIRATORY TREATMENTS, AND STARTED ON NORMAL SALINE AT 75ML/HR. WE FOLLOWED UP WITH AM LABS AND CONTINUED TO MONITOR. DAY TWO, SHE WAS ALERT AND ORIENTED, LYING IN BED ON MORNING ROUNDS. SHE WAS NOTED WITH COMPLAINTS OF LOWER ABDOMINAL PAIN AND SHORTNESS OF BREATH. ON EXAMINATION, HEART WAS REGULAR IN RATE AND RHYTHM. BILATERAL LUNGS WERE NOTED WITH DIMINISHED LUNG SOUNDS THROUGHOUT. ABDOMEN WAS ROUND, SOFT, AND NOTED WITH MILD, SUPRAPUBIC TENDERNESS TO PALPATION. NORMAL BOWEL SOUNDS NOTED IN ALL QUADRANTS. THERE WAS TRACE EDEMA NOTED TO BILATERAL LOWER EXTREMITIES. HER VITALS WERE 98.6-95-18-96%-124/63. ABNORMAL LAB VALUES INCLUDED THE FOLLOWING: WBC 17.5, RBC 2.40, HGB 8.2, HCT 23.5, CHLORIDE 108, BUN 42, CREATININE 1.83, GLUCOSE 161, CALCIUM 7.7, AST 14, ALT 10, TOTAL PROTEIN 5.6, ALBUMIN 2.2. CARDIAC ENZYMES WERE WITHIN NORMAL LIMITS. A CHEST XRAY WAS OBTAINED AND REVEALED: MODERATE CARDIOMEGALY WITHOUT CONGESTIVE HEART FAILURE. ECHOCARDIOGRAM REVEALED AN EJECTION FRACTION OF 55%. SHE RECEIVED INVANZ 500MG IV DAILY. WE FOLLOWED UP WITH AM LABS AND CONTINUED TO MONITOR PATIENT. DAY FOUR, SHE WAS ALERT AND ORIENTED, LYING IN BED ON MORNING ROUNDS. SHE CONTINUED WITH COMPLAINTS OF SHORTNESS OF BREATH, MILD ABDOMINAL PAIN, AND GENERALIZED WEAKNESS TODAY. ON EXAMINATION, HEART WAS REGULAR IN RATE AND RHYTHM. BILATERAL LUNGS WERE NOTED WITH DIMINISHED LUNG SOUNDS THROUGHOUT. ABDOMEN WAS ROUND, SOFT, AND NOTED WITH MILD, SUPRAPUBIC TENDERNESS TO PALPATION. NORMAL BOWEL SOUNDS NOTED IN ALL QUADRANTS. THERE WAS TRACE EDEMA NOTED TO BILATERAL LOWER EXTREMITIES. HER VITALS WERE 99.0-94-20-97%-175/81. ABNORMAL LAB VALUES INCLUDED THE FOLLOWING: WBC 10.8, RBC 2.48, HGB 8.5, HCT 24.0, CHLORIDE 108, BUN 21, G LUCOSE 127, CALCIUM 8.0, AST 12, TOTAL PROTEIN 5.6, ALBUMIN 2.1. A CHEST XRAY WAS OBTAINED TODAY AND REVEALED: Moderate cardiomegaly without congestive heart failure. No acute infiltrates. Mild interstitial lung changes, chronic. SHE RECEIVED INVANZ 500MG IV DAILY WELL IV FLUIDS. WE STARTED ALBUMIN 25% IV DAILY. WE CONTINUED WITH CURRENT PLAN OF CARE. WE FOLLOWED UP WITH AM LABS AND CONTINUED TO MONITOR PATIENT. DAY SIX, The patient has been on IV antibiotics for urinary tract infection, as well as started on respiratory therapy with supplemental oxygen. The patient received IV Lasix yesterday with improved chest congestion this morning. She had approximately 2,800 mL output yesterday following the IV Lasix. The patient stated that she has continued with some cough but feels better than one day ago. She also complained of some mild nausea this morning. agricultural technical officer recommended an ultrasound of the left groin to further evaluate soft tissue swelling to rule out abscess and we changed the order for this. The patient was awake, alert, and oriented to herself and situation. She was in mild respiratory distress. The patient did have diffuse diminished lung bases and expiratory wheezes, and diffuse central rhonchi. The abdomen was soft and non-tender with bowel sounds present times all four quadrants. She did have +1 to trace lower extremity edema bilaterally. Skin: On the left inguinal area there was an approximately 4 cm firm soft tissue mass tender with mild redness and increased warmth. We continued with current plan of treatment and continued to monitor. Day Eight, PERFORMED NEEDLE ASPIRATION YESTERDAY AND SENT A CULTURE TO THE LAB. TODAY, SHE WAS ALERT AND ORIENTED, LYING IN BED ON MORNING ROUNDS. SHE CONTINUED WITH COMPLAINTS OF SHORTNESS OF BREATH AND GENERALIZED WEAKNESS TODAY. SHE ALSO REPORTED SWELLING TO BILATERAL LOWER EXTREMITIES. ON EXAMINATION, HEART WAS REGULAR IN RATE AND RHYTHM. BILATERAL LUNGS WERE NOTED WITH DIMINISHED LUNG SOUNDS THROUGHOUT. ABDOMEN WAS ROUND, SOFT, AND NOTED WITH MILD, SUPRAPUBIC TENDERNESS TO PALPATION. NORMAL BOWEL SOUNDS NOTED IN ALL QUADRANTS. THERE WAS 1+ PITTING EDEMA NOTED TO BILATERAL LOWER EXTREMITIES. LEFT GROIN WAS NOTED WITH SOFT TISSUE SWELLING AND REDNESS. HER VITALS WERE 98.9-78-20-92%RA-151/65. ABNORMAL LAB VALUES INCLUDED THE FOLLOWING: WBC 13.5, RBC 2.53, HGB 8.4, HCT 24.6, BUN 22, GLUCOSE 123, CALCIUM 8.0, AST 11, TOTAL PROTEIN 5.4, ALBUMIN 2.5. SHE RECEIVED INVANZ 500MG IV DAILY AND NEB TREATMENTS. WE ADMINISTERED LASIX 20MG IV BID. WE CONTINUED WITH CURRENT PLAN OF CARE. WE FOLLOWED UP WITH AM LABS AND CONTINUED TO MONITOR PATIENT. DAY NINE, PATIENT SITTING UP IN BED ALERT AND ORIENTED THIS MORNING. PATIENT VOICED NO COMPLAINTS THIS AM. CASE MANAGEMENT TALK WITH PATIENT ABOUT DISCHARGE PLANS AND POSSIBLE LONG-TERM PLACEMENT FOR REHAB. PATIENT STATED SHE DID NOT WANT TO GO TO A LONG-TERM AND ELECTED TO DISCHARGE HOME WITH HOME HEALTH. VITAL SIGNS WERE STABLE. LABS ARE WITHIN NORMAL RANGE FOR PATIENT. WE PLANNED FOR DISCHARGE HOME WITH HOME HEALTH. INSTRUCTIONS FOR MEDICATIONS AND FOLLOW UP WERE DISCUSSED WITH PATIENT AND FAMILY, BOTH VOICED UNDERSTANDING. PATIENT DISCHARGED HOME IN STABLE CONDITION WITH FAMILY. - Discharge Medications Discharge Medications: Home Medication List ranitidine HCl [Zantac Maximum Strength] 150 mg PO BID PRN 12/12/17 [History] ipratropium-albuterol 1 ea NEB TID #50 ml 12/20/17 [Rx] nitrofurantoin monohyd/m-cryst [Macrobid] 100 mg PO BID #14 cap 12/20/17 [Rx] nystatin [Nyamyc] 1 applic TOP BID #1 g 12/20/17 [Rx] sulfamethoxazole-trimethoprim [Bactrim DS] 1 tab PO Q12H #28 tab 12/20/17 [Rx] Prescriptions: ipratropium-albuterol Ashish Son nitrofurantoin monohyd/m-cryst [Macrobid] Ashish Son nystatin [Nyamyc] Ashish Son sulfamethoxazole-trimethoprim [Bactrim DS] Ashish Son Ambulatory Orders gabapentin 300 mg PO BID 11/08/17 furosemide [Lasix] 20 mg PO BID #60 tab 11/10/17 - Discharge Disposition Discharge Disposition: PATIENT TO FOLLOW UP IN OUR OFFICE IN ONE WEEK. PATIENT TO FOLLOW UP WITH DR. RAMSEY ON NEXT AVAILABLE APPOINTMENT TIME.
== END 2017-12-21 12:20 | disposition home health service (06) | DRG 689 ==
LOC: ER 21:20 → MED/SURG 21:20
PROVIDERS: ADMIT Internal Medicine; ATTEND Internal Medicine
DX: R60.0 Localized edema; E88.09 Other disorders of plasma-protein metabolism, not elsewhere classified; R06.02 Shortness of breath; L02.214 Cutaneous abscess of groin; R40.4 Transient alteration of awareness; K21.9 Gastro-esophageal reflux disease without esophagitis; I51.7 Cardiomegaly; R26.89 Other abnormalities of gait and mobility; N30.00 Acute cystitis without hematuria; M13.89 Other specified arthritis, multiple sites; R94.31 Abnormal electrocardiogram [ECG] [EKG]; D50.8 Other iron deficiency anemias; J18.8 Other pneumonia, unspecified organism; I10 Essential (primary) hypertension
CPT/HCPCS: 36415; 70450; 71010; 71045; 74176; 76881; 80053; 81001; 82270; 82550; 82553; 83605; 83735; 84484; 85025; 87040; 87070; 87075; 87077; 87086; 87186; 87205; 93005; 94640; 94760; 96365; 96374; 97110; 97163; 97167; 97530; 97535; 99231; 99283; 99284; A4216; A4217; A4222; P9047; Q0177; G0378; J0696; J1335; J1940; J2560; J3411; J3475; J3490; J7030; J7050; J7608; J7620